=== PATIENT | female | born 1950 | race Caucasian/White ===

== ENCOUNTER 2024-05-16 15:20 | Inpatient (IN) | payer MEDICARE, BC ==
[~2024-05-16] VITALS: Ht 157.5 cm; Wt 82.5 kg
[~2024-05-16 15:20] MED LIST: ALEN35TA18 PO; ASPI81CH59 PO; ATEN-60 PO; ATOR20TA PO; CLOP75TA70 PO; LISI-275 PO; METF-370 PO
--- NOTE | 2024-05-16 16:38 | DVH ---
EXAM: CT HEAD WITHOUT CONTRAST INDICATION: echeverria TECHNIQUE: CT of the head without intravenous contrast. Radiation Dose Information: CT Dose: CTDI volume is 59.63 mGy. Dose-length product is 1175.13 mGy*cm The dose indicators for CT are the volume Computed Tomography (CT) Dose Index (CTDIvol) and the Dose Length Product (DLP), and are measured in units of mGy and mGy-cm, respectively. These indicators are not patient dose, but values generated from the CT scanner acquisition factors. The report includes radiation exposure data for exposures received during this examination. COMPARISON: None FINDINGS: There is no evidence of acute intracranial hemorrhage, extra-axial collection, mass effect, midline s hift, herniation or hydrocephalus. The ventricles, sulci and cisterns are age appropriate. The sorensen-white differentiation is intact. Patchy periventricular and subcortical white matter hypoattenuation is nonspecific but may be related to small vessel ischemic disease. Small right ethmoid air cell opacity. Otherwise the visualized paranasal sinuses and mastoid air [place] are clear. The surrounding soft tissues and osseous structures are unremarkable. IMPRESSION: 1. No CT evidence of acute intracranial abnormality. HS:Y
[2024-05-16] MEDS: ONDANSETRON HCL 4 MG/2 ML VIAL IM ONE (16:43)
[2024-05-16] MEDS: HYDROmorphone HCL 2 MG/ML VL/or syr IM ONE (16:43)
[2024-05-16 17:11] VITALS: PULSE 67; RESP 18; O2SAT 98
[2024-05-16] MEDS: ONDANSETRON HCL 4 MG/2 ML VIAL IV ONE (18:32)
[2024-05-16] MEDS: MORPHINE SULFATE 4 MG/ML SYR/VIAL IV ONE (18:33)
[2024-05-16] MEDS: hydrALAZINE HCL 20 MG/ML VL IV ONE (18:54)
[2024-05-16 19:25] VITALS: PULSE 70; RESP 15; O2SAT 97
--- NOTE | 2024-05-16 20:21 | ED.PDOC ---
History of Present Illness HPI Comments 73-year-old female who comes in with chief complaint of nausea and vomiting with a severe headache. The patient was status post left carotid brain aneurysm repair [facility] on 05/12/2024. The patient now comes in with pain of a 10/10. She states that the pain started at approximat tee 7:00 a.m. this morning and has been worsening. Despite taking her medication of oxycodone, the patient states that it was not helping. Chief Complaint: Headache Time Seen by MD: 15:50 Primary Care Provider: FLY Reviewed Notes: Nurses Notes, Medications, Allergies (No allergies to medications) Allergies: Coded Allergies: NO KNOWN ALLERGIES (Unverified , 05/16/24) Information Source: Patient, Relative Mode of Arrival: Ambulatory Severity: Moderate Timing: Hours Duration: Since onset Prehospital treatment: None Location: Left-sided headache with nausea and vomiting Associated signs and symptoms No other complaints at this time Past Medical History PAST MEDICAL HISTORY: DM (Prediabetes), High Lipids, HTN Surgical History: Cholecystectomy, Tubal Ligation Surgical History (Other): Brain aneurysm surgery, right mastectomy PUBLIC ADDRESS SYSTEM MECHANIC History: No Pertinent PUBLIC ADDRESS SYSTEM MECHANIC History Constitutional: denies: chills, diaphoresis, fatigue, fever, malaise, sweats, weakness, others EENTM: denies: blurred vision, double vision, ear bleeding, ear discharge, ear drainage, ear pain, ear ringing, eye pain, eye redness, hearing loss, mouth pain, mouth swelling, nasal discharge, nose bleeding, nose congestion, nose pain, photophobia, tearing, throat pain, throat swelling, voice changes, others Respiratory: denies: cough, hemoptysis, orthopnea, SOB at rest, shortness of breath, SOB with excertion, stridor, wheezing, others Cardiovascular: denies: chest pain, dizzy spells, diaphoresis, Dyspnea on exertion, edema, irregular heart beat, left arm pain, lightheadedness, palpitations, PND, syncope, others Gastrointestinal: denies: abdomen distended, abdominal pain, blood streaked bowels, constipated, diarrhea, dysphagia, difficulty swallowing, hematemesis, melena, nausea, poor appetite, poor fluid intake, rectal bleeding, rectal pain, vomiting, others Genitourinary: denies: abnormal vagina bleeding, burning, dyspareunia, dysuria, flank pain, frequency, hematuria, incontinence, pain, , vagina discharge, urgency, others Neurological: denies: dizziness, fainting, headache, left sided numbness, left sided weakness, numbness, paresthesia, pre-existing deficit, right sided numbness, right sided weakness, seizure, speech problems, tingling, tremors, weakness, others Musculoskeletal: denies: back pain, gout, joint pain, joint swelling, muscle pain, muscle stiffness, neck pain, others Integumetry: denies: bruises, change in color, change in hair/nails, dryness, laceration, lesions, lumps, rash, wounds, others Allergic/Immunocompromised: denies: Difficulty Healing, Frequent Infections, Hi ves, Itching, others Hematologic/Lymphatic: denies: anemia, blood clots, easy bleeding, easy bruising, swollen glands, others Endocrine: denies: excessive hunger, excessive sweating, excessive thirst, excessive urination, flushing, intolerance to cold, intolerance to heat, unexplained weight gain, unexplained weight loss, others Psychiatric: denies: anxiety, bipolar disorder, depression, hopeless, panic disorder, schizophrenia, sleepless, suicidal, others Physical Exam General Appearance: Moderate Distress HEENT: Normal ENT Inspection, Pharynx Normal, TMs Normal Neck: Full Range of Motion, Non-Tender, Normal, Normal Inspection Respiratory: Chest Non-Tender, Lungs Clear, No Accessory Muscle Use, No Respiratory Distress, Normal Breath Sounds Cardiovascular: No Edema, No JVD, No Murmur, No Gallop, Normal Peripheral Pulses, Regular Rate/Rhythm Breast Exam: Deferred Gastrointestinal: No Organomegaly, Non Tender, No Pulsatile Mass, Normal Bowel Sounds, Soft Genitalia: Deferred Pelvic: Deferred Rectal: Deferred Extremities: No calf tenderness, Normal capillary refill, No pedal edema Musculoskeletal : Apperance: Normal Neurologic: Alert, health information management director II-XII nml as Tested, Motor Weakness, Normal Affect, Normal Mood, No Sensory Deficits Cerebellar Function: Normal Reflexes: Normal Skin: Dry, Normal Color, Warm Lymphatic: No Adenopathy Was a procedure done? Was a procedure done?: No Differential Dx Considerations may include: Accelerated hypertension, migraine headache, generalized weakness X-Ray, Labs, Meds, VS Vital Signs Date Time Temp Pulse Resp B/P (MAP) Pulse Ox O2 Delivery O2 Flow Rate FiO2 05/16/24 19:25 97.7 91 12 144/70 (94) 96 97.7 05/16/24 19:25 70 15 97 Room Air* 0 05/16/24 19:00 71 16 135/75 05/16/24 18:54 142/83 05/16/24 18:33 72 18 176/84 05/16/24 18:16 61 17 176/84 05/16/24 17:14 63 16 165/119 (134) 98 05/16/24 17:11 67 18 98 Room Air* 0 05/16/24 16:43 69 16 183/96 05/16/24 15:24 97.3 72 18 177/100 (125) 95 Current Medications Medications (Trade) Dose Ordered Sig/Rose Route Start Time Stop Time Status Last Admin Hydromorphone HCl (Dilaudid Injection) 1 mg ONCE ONCE IM 05/16/24 16:30 05/16/24 16:31 DC 05/16/24 16:43 Ondansetron HCl (Zofran) 4 mg ONCE ONCE IM 05/16/24 16:30 05/16/24 16:31 DC 05/16/24 16:43 Morphine Sulfate 4 mg ONCE ONCE IV 05/16/24 18:15 05/16/24 18:16 DC 05/16/24 18:33 Ondansetron HCl (Zofran) 4 mg ONCE ONCE IV 05/16/24 18:15 05/16/24 18:16 DC 05/16/24 18:32 Hydralazine HCl (Apresoline Injection) 15 mg ONCE ONCE IV 05/16/24 18:45 05/16/24 18:46 DC 05/16/24 18:54 IV Hep-Lock was established The patient was given Dilaudid 1 mg IM The patient was then given Zofran 4 mg IM The patient was having continued headache so was given morphine 4 mg IV push The patient was also given Zofran 4 mg IV push For the elevated blood pressure, the patient was given hydralazine 15 mg IV push The patient's blood pressure is now 144/70 The patient was being admitted to the hospitalist CT scan of the head shows no sign of any abnormalities Images Reviewed?: Images reviewed and evaluated by me Time of 1ST Reevaluation: 21:40 Reevaluation 1ST: Unchanged Patient Education/Counseling: Diagnosis, Treatment, Prognosis Family Education/Counseling: Diagnosis, Treatment, Prognosis Departure 1 Departure Time of Disposition: 21:40 Impression: Primary Impression: Accelerated hypertension Additional Impression: Tension headache Disposition: 09 ADMITTED INPATIENT Admit to: Tele Condition: Fair Critical Care Note Critical Care Time?: Yes (35 min-critical care time only) Stability Stability form required: Yes Unstable for transfer: Telemetry monitoring (Telemetry monitoring required), ED Physician Assesment (Clinical assesment) Heart Score Heart Score: Heart Score Response (Comments) Value History N/A 0 EKG N/A 0 Age N/A 0 Risk Factors N/A 0 Troponin N/A 0 Total 0 FLORES STARKS MD May 16, 2024 20:20
[2024-05-16] MEDS ORDERED: NITROGLYCERIN 0.4 MG SL TAB SL PRN (21:00)
[2024-05-16] MEDS ORDERED: MORPHINE SULFATE INJ 2 MG/ml SYRG IV PRN (21:00)
[2024-05-16] MEDS: HYDROcodone-ACET 5/325MG TAB PO PRN (21:41)
[2024-05-16] MEDS: ONDANSETRON HCL 4 MG/2 ML VIAL IV PRN (21:41)
[2024-05-16] MEDS: SODIUM CHLOR 0.9% PF (SALINE LOCK) 10ML VIAL/SYR IV SCH (22:03)
[2024-05-16 22:22] LABS: Basophils # (auto) 0 10 ^3/uL (0-0.2); Basophils % (auto) 0.2 % (0.0-2.0); Eosinophils # (auto) 0 10 ^3/uL (0-0.8); Eosinophils % (auto) 0.2 % (0.0-7.0); Hematocrit 39.2 % (36.0-46.0); Hemoglobin 13.3 g/dL (12.2-16.2); Lymphocytes # (auto) 1.3 10 ^3/uL (0.4-5.4); Lymphocytes % (auto) 11.7 % (10.0-50.0); Mean Corpuscular Hemoglobin 30.2 pg (28.0-32.0); Mean Corpuscular Hgb Conc. 33.9 g/dL (32.0-36.0); Mean Corpuscular Volume 89.1 fL (80.0-100.0); Monocytes % (auto) 9.2 % (0.0-12.0); Neutrophils # (auto) 8.6 10 ^3/uL (1.6-8.6); Neutrophils % (auto) 78.7 % (37.0-80.0); Nucleated Red Blood Cells % 0.2 %; Platelet Count (auto) 321 10^3/uL (140-450); Red Cell Distribution Width 14.5 % (11.8-14.3)
[2024-05-16 22:35] LABS: Alanine Aminotransferase 82 U/L (7-40); Albumin 4.2 g/dL (3.2-4.8); Alkaline Phosphatase 68 U/L (46-116); Anion Gap 6 (5-15); Aspartate Aminotransferase 21 U/L (13-40); BUN/Creatinine Ratio 14.1 (10.0-20.0); Blood Urea Nitrogen 10 mg/dL (9-23); Calcium 9.5 mg/dL (8.7-10.4); Carbon Dioxide 29 mmol/L (20-31); Chloride 104 mmol/L (98-107); Glucose 132 mg/dL (74-106); Potassium 3.5 mmol/L (3.5-5.1); Sodium 139 mmol/L (136-145)
[2024-05-16 22:36] LABS: Bilirubin, Total 0.5 mg/dL (0.2-1.0); Total Protein 6.6 g/dL (5.7-8.2)
--- NOTE | 2024-05-17 00:28 | DVHHPRES ---
History of Present Illness Resident Creating Document: EDWARD ZHENG RESIDENT History of Present Illness This is a 73-year-old female with past medical history of hypertension, hyperlipidemia, prediabetes presented to the ED with chief complaints of nausea , vomiting and severe Lt sided headache since morning prior to this admission. The patient was status post left carotid brain aneurysm repair [facility] on 05/12/2024. According to the patient the headache is throbbing in nature, pulsatile, intermittent with a 10/10 with no aggravating factor and relieved a little bit by IV morphine presented with nausea and vomiting couple of times since morning. The daughter mentioned she contacted with the neurosurgeon in [place] who did the surgery and was advised to take oxycodone for the headache but it was not helping the patient that prompted this visit. The patient denies chest pain, shortness of breath, dizziness, diaphoresis, blurring of vision. abdominal pain or any change in bowel and bladder habit . Past Medical History Hypertension, hyperlipidemia, prediabetes, breast cancer 15 years ago Past Surgical History Cholecystectomy, tubal ligation, left-sided brain aneurysm surgery and right mastectomy Family History: None Smoke: No ALCOHOL: none Drugs: None Lives: with Family Review of Systems Constitutional: No: Fever, Chills, Sweats, Weakness, Malaise, Other Eyes: Pain ENT: No: Ear pain, Ear discharge, Nose pain, Nose discharge, Nose congestion, Mouth pain, Mouth swelling, Throat pain, Throat swelling, Other Respiratory: No: Cough, Dry, Shortness of breath, SOB with excertion, Wheezing, Hemoptysis, Pleuritic Pain, Sputum, Wheezing, Other Cardiovascular: No: Chest Pain, Palpitations, Orthopnea, Paroxysmal Noc. Dyspnea, Edema, Lt Headedness, Other Gastrointestinal: Nausea, Vomiting; No: Abdominal Pain, Diarrhea, Constipation, Melena, Hematochezia, Other Genitourinary: No Dysuria, No Frequency, No Incontinence, No Hematuria, No Retention, No Other Musculoskeletal: No: other, neck pain, shoulder pain, arm pain, back pain, hand pain, leg pain, foot pain Skin: No: Rash, Lesions, Jaundice, Bruising, Other Neurological: No: Weakness, Numbness, Incoordination, Change in speech, Confusi on, Seizures, Other Allergies: Coded Allergies: NO KNOWN ALLERGIES (Unverified , 05/16/24) Medications Current Medications Medications Dose Ordered Sig/Rose Route Start Time Stop Time Status Last Admin Dose Admin Sodium Chloride 10 ml Q8HR IV 05/16/24 22:00 05/16/24 22:03 10 ML Acetaminophen 325 mg Q4HP PRN PO 05/16/24 21:00 Acetaminophen/ Hydrocodone Bitart 1 tab Q4HP PRN PO 05/16/24 21:00 05/16/24 21:41 1 TAB Ondansetron HCl 4 mg Q4HP PRN IV 05/16/24 21:00 05/16/24 21:41 4 MG Morphine Sulfate 2 mg Q4HPRN PRN IV 05/16/24 21:00 Nitroglycerin 0.4 mg Q5MINP PRN SL 05/16/24 21:00 Morphine Sulfate 2 mg Q30M PRN IV 05/16/24 21:00 Exam Vital Signs Vital Signs Date Time Temp Pulse Resp B/P (MAP) Pulse Ox O2 Delivery O2 Flow Rate FiO2 05/16/24 19:25 97.7 91 12 144/70 (94) 96 97.7 05/16/24 19:25 Room Air* 0 21 Exam Physical examination: General Appearance: Alert, Oriented X3, Cooperative, mild distress due to severe left-sided headache HEENT: Atraumatic, PERRLA, EOMI, Mucous membrane moist/pink Respiratory: Clear to auscultation, Normal air movement Cardiovascular: Regular rate, Normal S1, Normal S2, No murmurs, no chest wall tenderness Abdominal: Normal bowel sounds, Soft, No tenderness, No hepatospenomegaly, No masses Extremities: No clubbing, No cyanosis, No edema, Normal pulses, No tenderness/swelling Skin: No rashes, No breakdown, No significant lesion Neuro: Normal gait, Normal speech, Strength at 5/5 X4 ext, Normal tone, Sensation intact. Psych/Mental Status: Mental status NL, Mood NL Labs/Xrays Labs Test 05/16/24 22:09 Range/Units White Blood Count 11.0 H 4.4-10.8 10^3/uL Red Blood Count 4.40 4.0-5.20 10^6/uL Hemoglobin 13.3 12.2-16.2 g/dL Hematocrit 39.2 36.0-46.0 % Mean Corpuscular Volume 89.1 80.0-100.0 fL Mean Corpuscular Hemoglobin 30.2 28.0-32.0 pg Mean Corpuscular Hemoglobin Concent 33.9 32.0-36.0 g/dL Red Cell Distribution Width 14.5 H 11.8-14.3 % Platelet Count 321 140-450 10^3/uL Mean Platelet Volume 7.0 6.9-10.8 fL Neutrophils (%) (Auto) 78.7 37.0-80.0 % Lymphocytes (%) (Auto) 11.7 10.0-50.0 % Monocytes (%) (Auto) 9.2 0.0-12.0 % Eosinophils (%) (Auto) 0.2 0.0-7.0 % Basophils (%) (Auto) 0.2 0.0-2.0 % Neutrophils # (Auto) 8.6 1.6-8.6 10 ^3/uL Lymphocytes # (Auto) 1.3 0.4-5.4 10 ^3/uL Monocytes # (Auto) 1.0 0-1.3 10 ^3/uL Eosinophils # (Auto) 0 0-0.8 10 ^3/uL Basophils # (Auto) 0 0-0.2 10 ^3/uL Nucleated Red Blood Cells 0.2 % Sodium Level 139 136-145 mmol/L Potassium Level 3.5 3.5-5.1 mmol/L Chloride Level 104 98-107 mmol/L Carbon Dioxide Level 29 20-31 mmol/L Anion Gap 6 5-15 Blood Urea Nitrogen 10 9-23 mg/dL Creatinine 0.71 0.550-1.02 mg/dL Glomerular Filtration Rate Calc 89 >90 mL/min BUN/Creatinine Ratio 14.1 10.0-20.0 Serum Glucose 132 H 74-106 mg/dL Calcium Level 9.5 8.7-10.4 mg/dL Total Bilirubin 0.5 0.2-1.0 mg/dL Aspartate Amino Transferase (AST) 21 13-40 U/L Alanine Aminotransferase (ALT) 82 H 7-40 U/L Alkaline Phosphatase 68 46-116 U/L Total Protein 6.6 5.7-8.2 g/dL Albumin 4.2 3.2-4.8 g/dL Assessment/Plan Assessment/Plan Assessment and plan: # Severe left-sided headache with vomiting, s/p left-sided brain aneurysm repair on 05/12/2024 in [place] - IV normal saline at 75 mL/hour - IV morphine 2 mg q.4 p.r.n. - [place] 5/325 mg q.4 p.r.n. - IV ondansetron 4 mg q.4 p.r.n. - CT head without contrast revealed no acute intracranial abnormality # Hypertensive urgency - On admission blood pressure was 177/100 - IV hydralazine 10 mg q.6 p.r.n. - Lisinopril 5 mg p.o. daily # Hypokalemia - Replenished # Prediabetes - Counseled patient regarding healthy low carb diet, lifestyle modification and physical exercise # DVT prophylaxis - Lovenox 40 mg sc daily Goal of care discussed with the patient for more than 20 minutes full code Plan of treatment discussed with Dr. Tang. Plan discussed with: Patient, Other My Orders Orders - EDWARD ZHENG RESIDENT Procedure Category Date Status Time Admit ADMIT 05/16/24 Transmitted 20:49 Code Status CODE 05/16/24 Transmitted 20:49 Sodium Chloride Lock PHA 05/16/24 In Process (Saline Lock Ns) 22:00 Oxygen Per Hour RT 05/16/24 Transmitted 20:49 Acetaminophen Tablet PHA 05/16/24 In Process (Tylenol Tablet) 21:00 Hydrocodone-Acet PHA 05/16/24 In Process 5/325mg Tab ([place] 21:00 Ondansetron Hcl PHA 05/16/24 In Process (Zofran) 21:00 Fall Risk Precautions SHIRA 05/16/[address] 20:49 Complete Blood Count LAB 05/17/24 Logged 04:00 Comprehensive LAB 05/17/24 Logged Metabolic Panel 04:00 Cardiac DIET 05/17/24 Transmitted Diet-2gna,Lofat,Lochol Breakfast Pt Request For Service PT 05/16/24 Logged 20:49 Morphine Sulfate PHA 05/16/24 In Process Injection 21:00 Nitroglycerin PHA 05/16/24 In Process Sublingual (Ntrostat 21:00 Morphine Sulfate PHA 05/16/24 In Process Injection 21:00 Oxygen By Nasal RT 05/16/24 Transmitted Cannula 20:49 Stat Ekg For Chest SHIRA 05/16/24 In Process Pain 20:49 Notify Md Of Changes SHIRA 05/16/24 In Process From Base 20:49 [employer] Specialist For [facility] 05/16/24 In Process 24 Hours 20:49 Emergency Dysrhythmia [facility] 05/16/24 In Process Protocol 20:49 Rhythm Strips Once [facility] 05/16/24 In Process Every Shift 20:49 Date of Service: May 16, 2024 Billing Provider: DANIELLE TANG MD Common Visit Codes: 60106-ZOKCLGR INP/OBS CARE (HIGH) Secondary Visit Codes: 58009-[id number] CARE PLAN 30 MINUTES EDWARD ZHENG RESIDENT May 17, 2024 00:27 DANIELLE TANG MD May 17, 2024 09:34
[2024-05-17 04:03] LABS: Basophils # (auto) 0 10 ^3/uL (0-0.2); Basophils % (auto) 0.1 % (0.0-2.0); Eosinophils # (auto) 0.1 10 ^3/uL (0-0.8); Eosinophils % (auto) 0.8 % (0.0-7.0); Hematocrit 38.1 % (36.0-46.0); Hemoglobin 12.9 g/dL (12.2-16.2); Lymphocytes # (auto) 1.5 10 ^3/uL (0.4-5.4); Lymphocytes % (auto) 16.4 % (10.0-50.0); Mean Corpuscular Hemoglobin 30.1 pg (28.0-32.0); Mean Corpuscular Hgb Conc. 33.9 g/dL (32.0-36.0); Mean Corpuscular Volume 88.8 fL (80.0-100.0); Monocytes % (auto) 10.3 % (0.0-12.0); Neutrophils # (auto) 6.9 10 ^3/uL (1.6-8.6); Neutrophils % (auto) 72.4 % (37.0-80.0); Nucleated Red Blood Cells % 0.1 %; Platelet Count (auto) 296 10^3/uL (140-450); Red Blood Cells 4.29 10^6/uL (4.0-5.20); Red Cell Distribution Width 14.5 % (11.8-14.3); White Blood Cell 9.5 10^3/uL (4.4-10.8)
[2024-05-17 04:17] LABS: Alanine Aminotransferase 70 U/L (7-40); Albumin 4.1 g/dL (3.2-4.8); Alkaline Phosphatase 67 U/L (46-116); Anion Gap 7 (5-15); Aspartate Aminotransferase 17 U/L (13-40); Blood Urea Nitrogen 12 mg/dL (9-23); Calcium 9.5 mg/dL (8.7-10.4); Carbon Dioxide 31 mmol/L (20-31); Chloride 101 mmol/L (98-107); Glucose 109 mg/dL (74-106); Potassium 3.4 mmol/L (3.5-5.1); Sodium 139 mmol/L (136-145)
[2024-05-17 04:18] LABS: Bilirubin, Total 0.5 mg/dL (0.2-1.0); Total Protein 6.5 g/dL (5.7-8.2)
[2024-05-17] MEDS: POTASSIUM CHL 20 Meq TABLET PO ONE (04:45)
[2024-05-17 04:50] VITALS: BP 156/96; PULSE 77; RESP 18; RESP 19; TEMP 97.8; TEMP 97.9; O2SAT 94; O2SAT 95
[2024-05-17] MEDS: MORPHINE SULFATE INJ 2 MG/ml SYRG IV PRN ×2 (05:17→09:47)
[2024-05-17] MEDS: hydrALAZINE HCL 20 MG/ML VL IV PRN (07:00)
[2024-05-17 08:00] VITALS: PULSE 80; RESP 20; O2SAT 90
[2024-05-17 09:00] VITALS: BP 129/65; PULSE 80; RESP 20; TEMP 98.9; O2SAT 90
[2024-05-17] MEDS: LISINOPRIL 5 MG TAB PO SCH (09:48)
[2024-05-17] MEDS: ENOXAPARIN SOD 40 MG/0.4 ML SYRINGE SC SCH (09:49)
[2024-05-17] MEDS: ASPirin-EC 81 mg tab PO SCH (09:49)
[2024-05-17] MEDS ORDERED: hydrALAZINE HCL 20 MG/ML VL IV PRN (11:15)
[2024-05-17] MEDS: ATENOLOL 25 MG TAB PO ONE (11:15)
--- NOTE | 2024-05-17 12:10 | DVHINCON2 ---
Date of service: May 17, [address] Gong Reason for Consultation Severe headache, status post left carotid aneurysm surgery History of Present Illness Ms. Field is a 73 years old right-handed female with a history of hypertension, dyslipidemia, diabetes, obesity, he has left ICA brain aneurysm/left eyelid ptosis, she received stent on 05/12/2024 in the [facility] with Dr. Raymundo. He came to the [facility] on 05/16/2024 because of intense left headache. At that time, he is alert and oriented x3, but the family relates the patient was is confused sometimes, the history is obtained from her family, the case has been discussed with Dr. Woody's team, Dr. 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 But on 05/16/2024, she developed intense headache, at the beginning was 7n-8/10, and within a few hours, the headache involved into 10/10 and she decided to seek medical attention. Along with a strong headache, the patient denies vision changes, worsening left eyelid ptosis, focal weakness numbness After presenting case to Dr. Raymundo, he recommended dexamethasone 4 mg q.6 hours, status CT brain scan for evidence of hemorrhage CBC, 05/17/2024: Unremarkable CMP, 05/17/2024: Unremarkable CT head, 05/16/2024: No CT evidence of acute intracranial abnormalit Past Medical History Hypertension, dyslipidemia, diabetes, obesity Past Surgical History Cholecystectomy, tubal ligation, print aneurysm stent, right facial skin cancer resection Family History: Patient reports no known family medical history. Family History One sister had brain aneurysm Social History Smoke: No ALCOHOL: none Drugs: None Lives: with Family Allergies: Coded Allergies: NO KNOWN ALLERGIES (Unverified , 05/16/24) Current Medications Current Medications Medications (Trade) Dose Ordered Sig/Rose Route PRN Reason Start Time Stop Time Status Last Admin Sodium Chloride (Saline Lock Ns) 10 ml Q8HR IV 05/16/24 22:00 11/5/24 06:06 Acetaminophen (Tylenol Tablet) 325 mg Q4HP PRN PO MILD PAIN (1-3 PAIN SCALE) 05/16/24 21:00 Acetaminophen/ Hydrocodone Bitart (Como 5/325MG Tab) 1 tab Q4HP PRN PO MODERATE PAIN (4-6 PAIN SCALE) 05/16/24 21:00 05/17/24 10:59 Ondansetron HCl (Zofran) 4 mg Q4HP PRN IV NAUSEA / VOMITING 05/16/24 21:00 05/17/24 10:59 Morphine Sulfate 2 mg Q4HPRN PRN IV SEVERE PAIN (7-10 PAIN SCALE) 05/16/24 21:00 05/17/24 11:29 DC 05/17/24 05:17 Nitroglycerin (Ntrostat Sublingual) 0.4 mg Q5MINP PRN SL FOR CHEST PAIN 05/16/24 21:00 05/17/24 05:04 DC Morphine Sulfate 2 mg Q30M PRN IV FOR CHEST PAIN 05/16/24 21:00 05/17/24 05:05 DC Lisinopril (Zestril Tablet) 5 mg DAILY PO 05/17/24 10:00 05/17/24 09:48 Hydralazine HCl (Apresoline Injection) 10 mg Q6HP PRN IV SBP>150 05/17/24 00:30 05/17/24 11:30 DC 05/17/24 07:00 Aspirin (Ecotrin Enteric Coated Tablet) 81 mg DAILY PO 05/17/24 10:00 05/17/24 09:49 Atorvastatin Calcium (Lipitor) 20 mg HS PO 05/17/24 22:00 Enoxaparin Sodium (Lovenox) 40 mg DAILY SC 05/17/24 10:00 05/17/24 09:49 Morphine Sulfate 2 mg Q6HPRN PRN IV SEVERE PAIN (7-10 PAIN SCALE) 05/17/24 09:30 05/17/24 09:47 Hydralazine HCl (Apresoline Injection) 10 mg Q6HP PRN IV SBP>150 05/17/24 11:15 Review of Systems As above, the other systems are negative Vital Signs Vital Signs Date Time Temp Pulse Resp B/P (MAP) Pulse Ox O2 Delivery O2 Flow Rate FiO2 05/17/24 10:17 74 20 142/64 05/17/24 09:00 98.9 90 98.9 05/17/24 04:50 Room Air* 0 21 Physical Exam GENERAL EXAM: General: the patient is well developed and nourished. No acute distress. HEENT: Status post skin cancer removal in the left cheek, neck is supple, no carotid bruits. No mass. RESPIRATORY: Normal respiratory effort with symmetrical lung expansion. Lungs clear to auscultation. CARDIOVASCULAR: Regular rate and rhythm with no murmurs. S1, S2. ABDOMEN: Soft, nontender, normal bowel sound NEUROLOGICAL: MENTAL STATUS: Awake and alert. Oriented to person, place, time and general circ umstances (see HPI) SPEECH, LANGUAGE, HIGHER CORTICAL FUNCTION: no aphasia or dysathria. CRANIAL NERVES: #2: Intact visual kevin to confrontation. The optic discs were sharp #3,4,6: Pupils are equal, round and reactive. Left eyelid ptosis. EOMs full and conjugate but she has double vision when she looks to the left and the right side. No nystagmus or gaze evoked nystagmus. #5: Facial sensation intact in all three divisions bilaterally. Mandibular strength intact. #7: Facial muscles symmetrical and strength intact. #8: Hearing grossly normal to voice. #9,10: Uvula and soft palate rise in the midline. Swallow and voice are normal. #11: Trapezius and sternomastoid strength intact bilaterally. #12: Tongue midline. No fasciculations or atrophy. SENSATION: Sensation to touch and pinprick is normal. MOTOR: Normal tone in the upper and lower extremity. Normal muscle bulk. No fasciculations. No abnormal movements or posturing. Muscle strength of the major groups in the upper extremities is 5/5. Muscle strength of the major groups in the lower extremities is 5/5. REFLEXES: Deep tendon reflexes normal and symmetrical. No pathological reflexes. CEREBELLAR/COORDINATION: Finger to nose ise normal bilaterally. GAIT/STATION: deferred Labs/Diagnostic Data Labs Test 05/17/24 03:15 Range/Units White Blood Count 9.5 4.4-10.8 10^3/uL Red Blood Count 4.29 4.0-5.20 10^6/uL Hemoglobin 12.9 12.2-16.2 g/dL Hematocrit 38.1 36.0-46.0 % Mean Corpuscular Volume 88.8 80.0-100.0 fL Mean Corpuscular Hemoglobin 30.1 28.0-32.0 pg Mean Corpuscular Hemoglobin Concent 33.9 32.0-36.0 g/dL Red Cell Distribution Width 14.5 H 11.8-14.3 % Platelet Count 296 140-450 10^3/uL Mean Platelet Volume 6.9 6.9-10.8 fL Neutrophils (%) (Auto) 72.4 37.0-80.0 % Lymphocytes (%) (Auto) 16.4 10.0-50.0 % Monocytes (%) (Auto) 10.3 0.0-12.0 % Eosinophils (%) (Auto) 0.8 0.0-7.0 % Basophils (%) (Auto) 0.1 0.0-2.0 % Neutrophils # (Auto) 6.9 1.6-8.6 10 ^3/uL Lymphocytes # (Auto) 1.5 0.4-5.4 10 ^3/uL Monocytes # (Auto) 1.0 0-1.3 10 ^3/uL Eosinophils # (Auto) 0.1 0-0.8 10 ^3/uL Basophils # (Auto) 0 0-0.2 10 ^3/uL Nucleated Red Blood Cells 0.1 % Sodium Level 139 136-145 mmol/L Potassium Level 3.4 L 3.5-5.1 mmol/L Chloride Level 101 98-107 mmol/L Carbon Dioxide Level 31 20-31 mmol/L Anion Gap 7 5-15 Blood Urea Nitrogen 12 9-23 mg/dL Creatinine 0.75 0.550-1.02 mg/dL Glomerular Filtration Rate Calc 83 >90 mL/min BUN/Creatinine Ratio 16.0 10.0-20.0 Serum Glucose 109 H 74-106 mg/dL Calcium Level 9.5 8.7-10.4 mg/dL Total Bilirubin 0.5 0.2-1.0 mg/dL Aspartate Amino Transferase (AST) 17 13-40 U/L Alanine Aminotransferase (ALT) 70 H 7-40 U/L Alkaline Phosphatase 67 46-116 U/L Total Protein 6.5 5.7-8.2 g/dL Albumin 4.1 3.2-4.8 g/dL Assessment Acute intense headache, to rule out intracranial hemorrhage Big left ICA aneurysm status post stent 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 Although this document has been carefully reviewed, there may still be some phonetic and typographical errors. These areas are purely typographical due to imperfections of the software programs, and do not reflect any compromise in the patient's medical care. Plan discussed with: Patient, Daughter, Son, Other DEMARIO GARZA MD May 17, 2024 12:10
[2024-05-17 13:00] VITALS: BP 142/64; PULSE 86; RESP 18; TEMP 98.7; O2SAT 93
--- NOTE | 2024-05-17 13:24 | DVH ---
Procedure: CT HEAD WITHOUT CONTRAST Study Date and Requested Time: 05/17/2024 12:54 PM History: For aneurysm, stent on 05/12/24, to rule out hemorrhage Comparison: CT HEAD WITHOUT CONTRAST on DOS: 05/16/24 Dose: CTDI: 57.18 mGy DLP: 1126.75 mGycm Technique: Multiplanar images obtained through the brain without intravenous contrast. Findings: Mild diffuse brain atrophy. Moderate to severe chronic small vessel ischemic changes. No hemorrhages, masses, mass effect, midline shift, herniation or cytotoxic edema following a large v ascular territory. No intra-axial or extra-axial fluid collections. No evidence of hydrocephalus. The basal cisterns are patent. The pituitary gland, sella and parasellar regions are unremarkable. The cerebellar tonsils are in nor mal position. The cerebellum is unremarkable. The orbits and globes are unremarkable. The paranasal sinuses and mastoids are clear. There are no wo rrisome calvarial lesions. Mild fatty atrophy of the left parotid gland. There is redemonstration of left-sided cavernous and supraclinoid ICA stent. Impression: No evidence of acute intracranial abnormality.
[2024-05-17] MEDS: HYDROmorphone HCL 2 MG/ML VL/or syr IV PRN (13:45)
--- NOTE | 2024-05-17 14:57 | DVHPNRES ---
Progress Note Date Seen: May 17, 2024 Resident Creating Document: NICOLLE CHAIDEZ RESIDENT Medical Necessity Reason Pt with a Central, PICC or Fol: No Subjective Review of Systems Patient is 73 years old female with past medical history of hypertension, hyperlipidemia, prediabetes, obesity came with a complaint of pain behind the left ear started 1 day ago around 7:00 a.m. in the morning. As per patient patient pain was severe in nature, 9-10 out of 10, throbbing like pain, relieved with some pain medication after because of pain med with the hospital. Patient also endorsed some nausea and vomiting mainly watery no blood. Patient reported having coiling of the left internal carotid artery for left internal carotid artery aneurysm-intracranial part 05/12/2024 in [facility] by Dr. Raymundo. Patient denied any fever, change in vision, any dizziness, dysarthria, chest pain, shortness of breath, constipation, diarrhea. CT head was negative for acute intracranial pathology. Patient's lab workup revealed mild leukocytosis WBC 11.0, mild hypokalemia potassium 3.4. MRSA screen negative. PMH-hypertension, hyperlipidemia, prediabetes, obesity PSH-right mastectomy, tubal ligation , putting stent or call in the left internal carotid artery due to aneurysm Allergy- NKDA Personal History/ Social History- lives with daughter, denies smoking/alcoholism/drug abuse Patient was seen today at the bedside. Patient patient is still complaining of pain Cardiovascular- deny acute chest pain or shortness of breath or cough or palpitation Respiratory- denies cough or short of breath or wheezing Gastrointestinal- denies any rectal bleeding, nausea or vomiting Musculoskeletal-denies acute joint swelling or tenderness or redness Neurological- denies acute dysarthria, dysphagia, change in vision Psychiatry- denies depression or SI or HI Skin- denies acute rash or purpura Patient was seen today for clinical evaluation. Labs and chart reviewed. Patient reports ongoing left orbital pain. Denied any dysarthria or slurred speech. Patient was seen by Neurology, recommendation reviewed and appreciated. neurology recommended Telemetry CT head stat, EEG, Hold off Lovenox, Blood pressure control, SCD DVT prophylaxis, Dexamethasone 4 mg q.6 hours. Objective vital signs Vital Sign Date Time Temp Pulse Resp B/P (MAP) Pulse Ox O2 Delivery O2 Flow Rate FiO2 05/17/24 13:45 86 18 142/64 05/17/24 09:00 98.9 90 98.9 05/17/24 04:50 Room Air* 0 21 Total Intake and Output 05/16/24 05/16/24 05/17/24 15:00 23:00 07:00 Intake Total 0 ml Balance 0 ml medications Current Medications Medications Dose Ordered Sig/Rose Route Start Time Stop Time Status Last Admin Dose Admin Sodium Chloride 10 ml Q8HR IV 05/16/24 22:00 05/17/24 06:06 10 ML Acetaminophen 325 mg Q4HP PRN PO 05/16/24 21:00 Ondansetron HCl 4 mg Q4HP PRN IV 05/16/24 21:00 05/17/24 10:59 4 MG Lisinopril 5 mg DAILY PO 05/17/24 10:00 05/17/24 09:48 5 MG Aspirin 81 mg DAILY PO 05/17/24 10:00 05/17/24 09:49 81 MG Atorvastatin Calcium 20 mg HS PO 05/17/24 22:00 Hydralazine HCl 10 mg Q6HP PRN IV 05/17/24 11:15 Hydromorphone HCl 0.5 mg Q4HPRN PRN IV 05/17/24 12:15 05/17/24 13:45 0.5 MG Dexamethasone 4 mg Q6HR PO 05/17/24 18:00 Examination General examination- , alert oriented, conversant HEENT- PEERLA, no acute nasal discharge Cardiovascular- S1-S2 audible, rate and rhythm regular, no murmur Respiratory- CTAB, no wheeze or rhonchi Gastrointestinal-nontender, bowel sound+. Nondistended Musculoskeletal-no acute joint swelling or tenderness or redness# Lower extremity- no leg edema Neurological- left eye ptosis Psychiatry- denies depression or SI or HI Skin- fragile skin laboratory and microbiology Laboratory Tests 05/17/24 03:15 Test 05/17/24 03:15 Range/Units Serum Glucose 109 H 74-106 mg/dL Microbiology Date/Time Source Procedure Growth Status 05/17/24 05:30 Nose MRSA Screen - Final Complete Problem List/Assessment/Plan Problem List/Assessment/Plan # acute left retro-orbital pain likely due to postoperative complication from status post left ICA stent due to left internal carotid artery aneurysm, rule out intracranial hemorrhage -CT scan of the head negative for intracranial hemorrhage or infarction -neurology consultation reviewed and appreciated -Telemetry -EEG -Hold off Lovenox -Dexamethasone 4 mg q.6 hours # hypertension, uncontrolled likely due to acute left retro-orbital pain -continue lisinopril 5 mg p.o. daily -continue atenolol 25 mg p.o. daily -hydralazine IV p.r.n. as recommended # history of left internal carotid artery aneurysm, -status post left ICA stent, --CT scan of the head negative for intracranial hemorrhage or infarction -neurology consultation reviewed and appreciated -Telemetry -EEG order in place -Hold off Lovenox -Dexamethasone 4 mg q.6 hours # prediabetes -monitor blood sugar # hyperlipidemia -continue atorvastatin 20 mg p.o. q.h.s. #Obesity -patient was counseled about the weight reduction, healthy diet, physical activity Goals of care/advance care planning; FULL CODE; discussed with the patient PUD prophylaxis: DVT prophylaxis: Avoid blood thinner as per Neurology recommendation at this moment Plan discussed with Dr. Woody,,, nursing staff, patient Total time spent on patient evaluation, chart review, assessment and plan, discussion discussion >20 minutes Plan discussed with: Patient Plan discussed with: Patient, Daughter (RN), Other My Orders My Orders Orders - NICOLLE CHAIDEZ Procedure Category Date Status Time Hydralazine Injection PHA 05/17/24 In Process (Apresoline Inject 11:15 Atenolol Tablet PHA 05/18/24 In Process (Tenormin Tablet) 10:00 Date of Service: May 17, 2024 Billing Provider: SRINIVAS WOODY MD Common Visit Codes: 25343-[id number] INP/OBS CARE(HIGH) Secondary Visit Codes: [id number] CARE PLAN 30 MINUTES NICOLLE CHAIDEZ May 17, 2024 14:57 SRINIVAS WOODY MD May 17, 2024 19:03
[2024-05-17 17:00] VITALS: BP 144/71; PULSE 104; RESP 18; TEMP 99.2; O2SAT 89
[2024-05-17] MEDS: DexAMETHasone 4 MG TAB PO SCH (18:01)
[2024-05-17 21:00] VITALS: BP 148/68; PULSE 100; RESP 18; TEMP 98.6; O2SAT 92
[2024-05-17] MEDS: ATORVASTATIN 20 MG TAB PO SCH (21:12)
[2024-05-18] VITALS (8 sets, daily range): BP systolic 119–167; BP diastolic 69–86; PULSE 63–87; RESP 16–20; TEMP 97.3–99; O2SAT 90–93
--- NOTE | 2024-05-18 00:11 | DVHEEG2 ---
Neurology EEG Procedural Note Procedural Note EXAM DATE: 05/17/2024 REFERRING DOCTOR: Dr. Garza TECHNIQUE: Eighteen channels of EEG, 2 channels of EOG, and 1 channel of EKG were recorded using the International 10/20 system. CLINICAL DATA: The patient was referred for an EEG evaluation for the evidence of seizure disorder. MEDICATIONS: See the chart BACKGROUND ACTIVITY: The patient was asleep through the recording, the EEG was consistent with stage 1 sleep. ACTIVATION: Hyperventilation: Not done Photic Stimulation: Not done Sleep: Noticed IMPRESSION: This is a normal sleep EEG. No focal, lateralized, or epileptiform features are noted. If clinically indicated to rule out a seizure disorder, recommend repeat EEG with sleep deprivation. The EKG channel showed an irregular heart rate of 84/[place] [address] DEMARIO GARZA MD May 18, 2024 00:10
[2024-05-18] MEDS: ACETAMINOPHEN 325 MG TAB PO PRN (05:32)
--- NOTE | 2024-05-18 08:11 | DVH ---
CLINICAL INFORMATION: 73 years old, Female; R/O INTRACRAINAL HEMORRHAGE. TECHNIQUE: Axial CTA images of the head and neck were obtained after the uneventful administration o f 100 mL Omnipaque 350 IV contrast. Coronal and sagittal reformatted images and MIP images were obtai keysha, reviewed, and stored. Measurements of carotid stenosis are made per NASCET criteria. All CT scan s at this medical facility are performed using dose modulation techniques as appropriate to a perform ed exam including the following: Automated exposure control was utilized; adjustment of the MA and/or KV according to patient size; and use of iterative reconstruction technique. CTDIvol = 0.07, 0.07, 20.7, 22.52 mGy DLP = 802.79 mGy-cm COMPARISON: Noncontrast enhanced CT head dated 05/17/2024. 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 Posterior cerebral arteries, basilar juno ry, and intracranial segments of the distal vertebral arteries are otherwise normal in caliber and co urse with no evidence of aneurysm, large vessel occlusion, significant stenosis, or vascular malforma tion. There is a patent stent extending from the lacerum segment of the left internal carotid artery to the ophthalmic segment. There is adjacent extra-axial mass measuring up to 1.7 cm in greatest dime nsion along the left side of the parasellar region, posterior to the left orbital apex. The anterior and middle cerebral arteries and intracranial segments of the distal internal carotid arteries are o therwise normal in caliber and course with no evidence of aneurysm, large vessel occlusion, significa nt stenosis, or vascular malformation. CTA NECK: Normal configuration of the aortic arch with patent origins of the brachiocephalic artery, left common carotid artery, and left subclavian artery. Subclavian arteries are patent with no signif icant stenosis. The bilateral common carotid, internal carotid, and external carotid arteries are pat ent with no significant stenosis or evidence of dissection. Left vertebral artery origin is from the aortic arch , a normal anatomic variant. Vertebral arteries are otherwise patent with no significant stenosis or evidence of dissection. Small subcentimeter right thyroid nodule, for which no further fo llow-up is needed per ACR white paper on incidentally detected thyroid nodules, due to its size. IMPRESSION: 1. CTA head demonstrates no evidence of large vessel occlusion, aneurysm, or significant stenosis. 2. CTA neck demonstrates no evidence of carotid or vertebral dissection or significant stenosis. 3. Stent in the intracranial segments of the left internal carotid artery as described above. 4. Well-circumscribed extra-axial mass in the left parasellar region , abutting the sphenoid , adjace nt to the posterior aspect of the left orbital apex , likely meningioma. Correlate with clinical find ings. MRI without and with contrast could be obtained to further characterize if clinically indicated . 5. Additional findings as detailed above.
[2024-05-18] MEDS ORDERED: IOHEXOL 350 MG/ML 100ML IJ ONE (08:24)
[2024-05-18 08:48] LABS: Basophils # (auto) 0 10 ^3/uL (0-0.2); Basophils % (auto) 0.2 % (0.0-2.0); Eosinophils # (auto) 0 10 ^3/uL (0-0.8); Eosinophils % (auto) 0.2 % (0.0-7.0); Hematocrit 37.7 % (36.0-46.0); Hemoglobin 12.6 g/dL (12.2-16.2); Lymphocytes # (auto) 0.9 10 ^3/uL (0.4-5.4); Lymphocytes % (auto) 8.5 % (10.0-50.0); Mean Corpuscular Hemoglobin 29.5 pg (28.0-32.0); Mean Corpuscular Hgb Conc. 33.5 g/dL (32.0-36.0); Mean Corpuscular Volume 88.1 fL (80.0-100.0); Monocytes % (auto) 9.7 % (0.0-12.0); Neutrophils # (auto) 8.7 10 ^3/uL (1.6-8.6); Neutrophils % (auto) 81.4 % (37.0-80.0); Platelet Count (auto) 289 10^3/uL (140-450); Red Blood Cells 4.27 10^6/uL (4.0-5.20); Red Cell Distribution Width 14.5 % (11.8-14.3); White Blood Cell 10.7 10^3/uL (4.4-10.8)
[2024-05-18 09:01] LABS: Chloride 95 mmol/L (98-107); Potassium 3.4 mmol/L (3.5-5.1)
[2024-05-18 09:02] LABS: Anion Gap 4 (5-15); Calcium 9.1 mg/dL (8.7-10.4); Carbon Dioxide 33 mmol/L (20-31)
[2024-05-18 09:03] LABS: Sodium 132 mmol/L (136-145)
[2024-05-18 09:07] LABS: BUN/Creatinine Ratio 15.3 (10.0-20.0); Blood Urea Nitrogen 11 mg/dL (9-23); Glucose 110 mg/dL (74-106)
[2024-05-18] MEDS ORDERED: ATENOLOL 25 MG TAB PO ONE (10:00)
[2024-05-18] MEDS: HYDROmorphone HCL 2 MG/ML VL/or syr IV PRN (10:02)
[2024-05-18] MEDS: ATENOLOL 25 MG TAB PO SCH (10:02)
[2024-05-18] MEDS: LISINOPRIL 20 MG TAB PO SCH (10:03)
[2024-05-18] MEDS: POTASSIUM CHL 10 Meq TABLET PO ONE (10:03)
--- NOTE | 2024-05-18 10:48 | DVHPN2 ---
Progress Note - Dictate Date Seen: May 18, 2024 Medical Necessity Reason Pt with a Central, PICC or Fol: No Subjective Ms. Field is a 73 years old right-handed female with a history of hypertension, dyslipidemia, diabetes, obesity, he has left ICA brain aneurysm/left eyelid ptosis, she received stent on 05/12/2024 in the [facility] with Dr. Raymundo. He came to the [facility] on 05/16/2024 because of intense left headache. I have seen and examined the patient, I have talked to her nurse, and Dr. Woody, her son is in the room, I have talked to Dr. Raymundo, her [facility] neurosurgeon She reports inadequate pain control, but otherwise no new complaints She was alert, oriented x3 CBC, 05/17/2024: Unremarkable CMP, 05/17/2024: Unremarkable CT head, 05/16/2024: No CT evidence of acute intracranial abnormalit CT head, 05/17/2024: No CT evidence of acute intracranial abnormalit CTA head, neck, 05/18/2024: 1. CTA head demonstrates no evidence of large vessel occlusion, aneurysm, or significant stenosis. 2. CTA neck demonstrates no evidence of carotid or vertebral dissection or significant stenosis. 3. Stent in the intracranial segments of the left internal carotid artery as described above. 4. Well-circumscribed extra-axial mass in the left parasellar region , abutting the sphenoid , adjacent to the posterior aspect of the left orbital apex , likely meningioma. Correlate with clinical findings. MRI without and with contrast could be obtained to further characterize if clinically indicated . 5. Additional findings as detailed above vital signs Vital Sign Date Time Temp Pulse Resp B/P (MAP) Pulse Ox O2 Delivery O2 Flow Rate FiO2 05/18/24 10:03 167/86 05/18/24 10:02 81 18 05/18/24 09:00 98.2 90 98.2 05/17/24 20:00 Room Air* 0 21 Total Intake and Output 05/17/24 05/17/24 05/18/24 15:00 23:00 07:00 Intake Total 500 ml 300 ml Balance 500 ml 300 ml medications Current Medications Medications Dose Ordered Sig/Rose Route Start Time Stop Time Status Last Admin Dose Admin Sodium Chloride 10 ml Q8HR IV 05/16/24 22:00 05/18/24 06:00 10 ML Acetaminophen 325 mg Q4HP PRN PO 05/16/24 21:00 05/18/24 05:32 325 MG Ondansetron HCl 4 mg Q4HP PRN IV 05/16/24 21:00 05/17/24 18:08 4 MG Aspirin 81 mg DAILY PO 05/17/24 10:00 05/18/24 10:03 81 MG Atorvastatin Calcium 20 mg HS PO 05/17/24 22:00 Dexamethasone 4 mg Q6HR PO 05/17/24 18:00 05/17/24 18:01 4 MG Atenolol 25 mg DAILY PO 05/18/24 10:00 05/18/24 10:02 25 MG Hydralazine HCl 10 mg Q6HP PRN IV 05/18/24 07:15 Lisinopril 20 mg DAILY PO 05/18/24 10:00 05/18/24 10:03 20 MG Hydromorphone HCl 1 mg Q4HPRN PRN IV 05/18/24 09:30 05/18/24 10:02 1 MG objective General: the patient is well developed and nourished. No acute distress. MENTAL STATUS: Awake and alert. Oriented to person, place, time and general circumstances (see HPI) SPEECH, LANGUAGE, HIGHER CORTICAL FUNCTION: no aphasia or dysathria. CRANIAL NERVES: Pupils are equal, round and reactive. Left eyelid ptosis. Slight limitation in the left eye upper gazing She has double vision when she looks to the left and the right side. No nystagmus or gaze evoked nystagmus. Facial sensation intact in all three divisions bilaterally. Mandibular strength intact. SENSATION: Sensation to touch and pinprick is normal. MOTOR: Normal tone in the upper and lower extremity. Normal muscle bulk. No fasciculations. No abnormal movements or posturing. Muscle strength of the major groups in the extremities is 5/5. REFLEXES: Deep tendon reflexes normal and symmetrical. No pathological reflexes. CEREBELLAR/COORDINATION: Finger to nose ise normal bilaterally. 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 Although this document has been carefully reviewed, there may still be some phonetic and typographical errors. These areas are purely typographical due to imperfections of the software programs, and do not reflect any compromise in the patient's medical care. Prognosis poor Plan discussed with: Patient, Son, Other Total Time (mins): 40 DEMARIO GARZA MD May 18, 2024 10:48
--- NOTE | 2024-05-18 15:23 | DVHPNRES ---
Progress Note Date Seen: May 18, 2024 Resident Creating Document: NICOLLE CHAIDEZ RESIDENT Medical Necessity Reason Pt with a Central, PICC or Fol: No Subjective Review of Systems Patient is 73 years old female with past medical history of hypertension, hyperlipidemia, prediabetes, obesity came with a complaint of pain behind the left ear started 1 day ago around 7:00 a.m. in the morning. As per patient patient pain was severe in nature, 9-10 out of 10, throbbing like pain, relieved with some pain medication after because of pain med with the hospital. Patient also endorsed some nausea and vomiting mainly watery no blood. Patient reported having coiling of the left internal carotid artery for left internal carotid artery aneurysm-intracranial part 05/12/2024 in [facility] by Dr. Raymundo. Patient denied any fever, change in vision, any dizziness, dysarthria, chest pain, shortness of breath, constipation, diarrhea. CT head was negative for acute intracranial pathology. Patient's lab workup revealed mild leukocytosis WBC 11.0, mild hypokalemia potassium 3.4. MRSA screen negative. CT angio of the head and neck revealed-CTA head demonstrates no evidence of large vessel occlusion, aneurysm, or significant stenosis, no evidence of carotid or vertebral dissection or significant stenosis. Stent in the intracranial segments of the left internal carotid artery as described above. Well-circumscribed extra-axial mass in the left parasellar region , abutting the sphenoid , adjacent to the posterior aspect of the left orbital apex , likely meningioma. Correlate with clinical findings. PMH-hypertension, hyperlipidemia, prediabetes, obesity PSH-right mastectomy, tubal ligation , putting stent or call in the left internal carotid artery due to aneurysm Allergy- NKDA Personal History/ Social History- lives with daughter, denies smoking/alcoholism/drug abuse Patient was seen today at the bedside. Patient is still complaining of pain Cardiovascular- deny acute chest pain or shortness of breath or cough or palpitation Respiratory- denies cough or short of breath or wheezing Gastrointestinal- denies any rectal bleeding, nausea or vomiting Musculoskeletal-denies acute joint swelling or tenderness or redness Neurological- denies acute dysarthria, dysphagia, change in vision Psychiatry- denies depression or SI or HI Skin- denies acute rash or purpura Patient was seen today for clinical evaluation. Labs and chart reviewed. Patient reports ongoing left retro-orbital pain. Increase the dose of Dilaudid p.r.n.. On 05/18/2024- CT angio of the head and neck revealed-CTA head demonstrates no evidence of large vessel occlusion, aneurysm, or significant stenosis, no evidence of carotid or vertebral dissection or significant stenosis. Stent in the intracranial segments of the left internal carotid artery as described above. Well-circumscribed extra-axial mass in the left parasellar region , abutting the sphenoid , adjacent to the posterior aspect of the left orbital apex , likely meningioma. Correlate with clinical findings. EEG revealed- This is a normal sleep EEG. No focal, lateralized, or epileptiform features are noted. If clinically indicated to rule out a seizure disorder, recommend repeat EEG with sleep deprivation. The EKG channel showed an irregular heart rate of 84/min Patient was restarted on dexamethasone yesterday- Dexamethasone 4 mg q.6 hours. Patient was followed up by neurologist today. Recommendation reviewed and appreciated. Ordered Ambien 5 mg p.o. q.h.s. for insomnia. Objective vital signs Vital Sign Date Time Temp Pulse Resp B/P (MAP) Pulse Ox O2 Delivery O2 Flow Rate FiO2 05/18/24 14:53 75 18 150/79 05/18/24 12:14 97.3 92 97.3 05/18/24 08:00 Room Air* 0 21 Total Intake and Output 05/17/24 05/17/24 05/18/24 15:00 23:00 07:00 Intake Total 500 ml 300 ml Balance 500 ml 300 ml medications Current Medications Medications Dose Ordered Sig/Rose Route Start Time Stop Time Status Last Admin Dose Admin Sodium Chloride 10 ml Q8HR IV 05/16/24 22:00 05/18/24 13:38 10 ML Acetaminophen 325 mg Q4HP PRN PO 05/16/24 21:00 05/18/24 05:32 325 MG Ondansetron HCl 4 mg Q4HP PRN IV 05/16/24 21:00 05/18/24 14:53 4 MG Aspirin 81 mg DAILY PO 05/17/24 10:00 05/18/24 10:03 81 MG Atorvastatin Calcium 20 mg HS PO 05/17/24 22:00 Dexamethasone 4 mg Q6HR PO 05/17/24 18:00 05/18/24 13:36 4 MG Atenolol 25 mg DAILY PO 05/18/24 10:00 05/18/24 10:02 25 MG Hydralazine HCl 10 mg Q6HP PRN IV 05/18/24 07:15 Lisinopril 20 mg DAILY PO 05/18/24 10:00 05/18/24 10:03 20 MG Hydromorphone HCl 1 mg Q4HPRN PRN IV 05/18/24 09:30 05/18/24 14:53 1 MG Examination General examination- , alert oriented, conversant HEENT- PEERLA, no acute nasal discharge Cardiovascular- S1-S2 audible, rate and rhythm regular, no murmur Respiratory- CTAB, no wheeze or rhonchi Gastrointestinal-nontender, bowel sound+. Nondistended Musculoskeletal-no acute joint swelling or tenderness or redness# Lower extremity- no leg edema Neurological- left eye ptosis Psychiatry- denies depression or SI or HI Skin- fragile skin laboratory and microbiology Laboratory Tests 05/18/24 08:35 Test 05/18/24 08:35 Range/Units Serum Glucose 110 H 74-106 mg/dL Microbiology Date/Time Source Procedure Growth Status 05/17/24 05:30 Nose MRSA Screen - Final Complete Problem List/Assessment/Plan Problem List/Assessment/Plan # acute left retro-orbital pain likely due to postoperative complication from status post left ICA stent due to left internal carotid artery aneurysm, rule out intracranial hemorrhage -CT scan of the head negative for intracranial hemorrhage or infarction -CT angio of the head and neck revealed-CTA head demonstrates no evidence of large vessel occlusion, aneurysm, or significant stenosis, no evidence of carotid or vertebral dissection or significant stenosis. Stent in the intracranial segments of the left internal carotid artery as described above. Well-circumscribed extra-axial mass in the left parasellar region , abutting the sphenoid , adjacent to the posterior aspect of the left orbital apex , likely meningioma -neurology recommendation reviewed and appreciated -EEG negative for seizure -Dexamethasone 4 mg q.6 hours # hypertension, uncontrolled likely due to acute left retro-orbital pain -increase lisinopril from 5 mg to 20 mg p.o. daily -continue atenolol 25 mg p.o. daily -hydralazine IV p.r.n. as recommended # history of left internal carotid artery aneurysm, -status post left ICA stent, --CT scan of the head negative for intracranial hemorrhage or infarction -neurology consultation reviewed and appreciated --EEG negative for seizure -Dexamethasone 4 mg q.6 hours # hemangioma- On 05/18/2024- Well-circumscribed extra-axial mass in the left parasellar region , abutting the sphenoid , adjacent to the posterior aspect of the left orbital apex , likely meningioma. -conservative management for now # insomnia -continue Ambien 5 mg p.o. q.h.s. #Prediabetes -monitor blood sugar #Hyperlipidemia -continue atorvastatin 20 mg p.o. q.h.s. #Obesity -patient was counseled about the weight reduction, healthy diet, physical activity Goals of care/advance care planning; FULL CODE; discussed with the patient PUD prophylaxis: DVT prophylaxis: Avoid blood thinner as per Neurology recommendation at this moment Plan discussed with Dr. Woody,,, nursing staff, patient Total time spent on patient evaluation, chart review, assessment and plan, discussion discussion >20 minutes Plan discussed with: Patient Plan discussed with: Patient, Spouse, Other (RN) My Orders My Orders Orders - NICOLLE CHAIDEZ Procedure Category Date Status Time Communication Order ORDERS 05/17/24 Transmitted 16:21 Angio Head/Neck CT 05/18/24 Resulted 06:59 Hydralazine Injection PHA 05/18/24 In Process (Apresoline Inject 07:15 Lisinopril Tablet PHA 05/18/24 In Process (Zestril Tablet) 10:00 Hydromorphone PHA 05/18/24 In Process Injection (Dilaudid 09:30 Zolpidem Tartrate PHA 05/18/24 In Process (Ambien) 19:00 Date of Service: May 18, 2024 Billing Provider: SRINIVAS WOODY MD Common Visit Codes: [id number] INP/OBS CARE(HIGH) NICOLLE CHAIDEZ May 18, 2024 15:23 SRINIVAS WOODY MD May 18, 2024 22:07
[2024-05-18] MEDS: hydrALAZINE HCL 20 MG/ML VL IV PRN (16:04)
[2024-05-18] MEDS: ZOLPIDEM TARTRATE 5 MG TAB PO ONE (22:35)
[2024-05-19 05:00] VITALS: BP 121/71; PULSE 76; RESP 17; TEMP 99.5; O2SAT 92
[2024-05-19 05:06] LABS: Basophils # (auto) 0 10 ^3/uL (0-0.2); Basophils % (auto) 0.1 % (0.0-2.0); Eosinophils # (auto) 0 10 ^3/uL (0-0.8); Hematocrit 37.7 % (36.0-46.0); Lymphocytes # (auto) 0.9 10 ^3/uL (0.4-5.4); Lymphocytes % (auto) 11.3 % (10.0-50.0); Mean Corpuscular Hemoglobin 30.5 pg (28.0-32.0); Mean Corpuscular Hgb Conc. 34.4 g/dL (32.0-36.0); Mean Corpuscular Volume 88.7 fL (80.0-100.0); Monocytes # (auto) 0.7 10 ^3/uL (0-1.3); Neutrophils # (auto) 6.7 10 ^3/uL (1.6-8.6); Neutrophils % (auto) 80.6 % (37.0-80.0); Platelet Count (auto) 298 10^3/uL (140-450); Red Blood Cells 4.25 10^6/uL (4.0-5.20); Red Cell Distribution Width 14.6 % (11.8-14.3); White Blood Cell 8.3 10^3/uL (4.4-10.8)
[2024-05-19 05:14] LABS: Anion Gap 3 (5-15); Carbon Dioxide 32 mmol/L (20-31); Chloride 98 mmol/L (98-107); Potassium 3.5 mmol/L (3.5-5.1); Sodium 133 mmol/L (136-145)
[2024-05-19 05:15] LABS: Calcium 9.1 mg/dL (8.7-10.4)
[2024-05-19 05:20] LABS: BUN/Creatinine Ratio 15.4 (10.0-20.0); Blood Urea Nitrogen 10 mg/dL (9-23); Glucose 104 mg/dL (74-106)
[2024-05-19 08:00] VITALS: PULSE 89; RESP 16
[2024-05-19 08:46] VITALS: BP 132/62; PULSE 89; RESP 16; TEMP 99.1; O2SAT 89
--- NOTE | 2024-05-19 10:20 | DVHDSRES ---
Discharge Summary Date of Admission Resident Creating Document: NICOLLE CHAIDEZ RESIDENT May 16, 2024 at 20:49 Date of Discharge: May 19, 2024 Admitting Diagnosis Left-sided headache Labs/Diagnostic Data: Laboratory Results Test 05/19/24 04:48 05/18/24 08:35 05/17/24 03:15 White Blood Count 8.3 10^3/uL (4.4-10.8) Red Blood Count 4.25 10^6/uL (4.0-5.20) Hemoglobin 13.0 g/dL (12.2-16.2) Hematocrit 37.7 % (36.0-46.0) Mean Corpuscular Volume 88.7 fL (80.0-100.0) Mean Corpuscular Hemoglobin 30.5 pg (28.0-32.0) Mean Corpuscular Hemoglobin Concent 34.4 g/dL (32.0-36.0) Red Cell Distribution Width 14.6 % (11.8-14.3) Platelet Count 298 10^3/uL (140-450) Mean Platelet Volume 6.6 fL (6.9-10.8) Neutrophils (%) (Auto) 80.6 % (37.0-80.0) Lymphocytes (%) (Auto) 11.3 % (10.0-50.0) Monocytes (%) (Auto) 8.0 % (0.0-12.0) Eosinophils (%) (Auto) 0.0 % (0.0-7.0) Basophils (%) (Auto) 0.1 % (0.0-2.0) Neutrophils # (Auto) 6.7 10 ^3/uL (1.6-8.6) Lymphocytes # (Auto) 0.9 10 ^3/uL (0.4-5.4) Monocytes # (Auto) 0.7 10 ^3/uL (0-1.3) Eosinophils # (Auto) 0 10 ^3/uL (0-0.8) Basophils # (Auto) 0 10 ^3/uL (0-0.2) Nucleated Red Blood Cells 0.0 % Sodium Level 133 mmol/L (136-145) Potassium Level 3.5 mmol/L (3.5-5.1) Chloride Level 98 mmol/L (98-107) Carbon Dioxide Level 32 mmol/L (20-31) Anion Gap 3 (5-15) Blood Urea Nitrogen 10 mg/dL (9-23) Creatinine 0.65 mg/dL (0.550-1.02) Glomerular Filtration Rate Calc 92 mL/min (>90) BUN/Creatinine Ratio 15.4 (10.0-20.0) Serum Glucose 104 mg/dL (74-106) Calcium Level 9.1 mg/dL (8.7-10.4) Hemoglobin A1c 6.1 % A1C (<5.7) Total Bilirubin 0.5 mg/dL (0.2-1.0) Aspartate Amino Transferase (AST) 17 U/L (13-40) Alanine Aminotransferase (ALT) 70 U/L (7-40) Alkaline Phosphatase 67 U/L (46-116) Total Protein 6.5 g/dL (5.7-8.2) Albumin 4.1 g/dL (3.2-4.8) Other Laboratory Tests 05/19/24 04:48 Brief Hx & Hospital Course: Patient is 73 years old female with past medical history of hypertension, hyperlipidemia, prediabetes, obesity came with a complaint of pain behind the left ear started 1 day ago around 7:00 a.m. in the morning. As per patient patient pain was severe in nature, 9-10 out of 10, throbbing like pain, relieved with some pain medication after because of pain med with the hospital. Patient also endorsed some nausea and vomiting mainly watery no blood. Patient reported having coiling of the left internal carotid artery for left internal carotid artery aneurysm-intracranial part 05/12/2024 in [facility] by Dr. Raymundo. Patient denied any fever, change in vision, any dizziness, dysarthria, chest pain, shortness of breath, constipation, diarrhea. CT head was negative for acute intracranial pathology. Patient's lab workup revealed mild leukocytosis WBC 11.0, mild hypokalemia potassium 3.4. MRSA screen negative. CT angio of the head and neck revealed-CTA head demonstrates no evidence of large vessel occlusion, aneurysm, or significant stenosis, no evidence of carotid or vertebral dissection or significant stenosis. Stent in the intracranial segments of the left internal carotid artery as described above. Well-circumscribed extra-axial mass in the left parasellar region , abutting the sphenoid , adjacent to the posterior aspect of the left orbital apex , likely meningioma. Correlate with clinical findings. EEG revealed- This is a normal sleep EEG. No focal, lateralized, or epileptiform features are noted. If clinically indicated to rule out a seizure disorder, recommend repeat EEG with sleep deprivation. The EKG channel showed an irregular heart rate of 84/min. Patient was treated conservatively with the Dilaudid and other pain medication, dexamethasone. No acute neurological deficit noted during hospitalization. CT angio of the head and neck revealed extra-axial mass measuring up to 1.7 cm in greatest dimension along the left side of the parasellar region, posterior to the left orbital apex.. CT scan and CT angio of the head and neck was negative for acute intra cranial hemorrhage or infarction. Patient was seen by neurologist. Neurologist interest her dexamethasone from 2 mg to 4 mg q.6h. Patient's pain gradually getting better. EEG negative for epilepsy. Patient is being discharged home in hemodynamically stable condition. Patient's med was sent to the pharmacy electronically. Patient was advised to follow up with the PCP in 1 week and neurosurgeon following discharge in 1-2 weeks. PMH-hypertension, hyperlipidemia, prediabetes, obesity PSH-right mastectomy, tubal ligation , putting stent or call in the left internal carotid artery due to aneurysm Allergy- NKDA Personal History/ Social History- lives with daughter, denies smoking/alcoholism/drug abuse Patient was seen today at the bedside. Patient is still complaining of pain Cardiovascular- deny acute chest pain or shortness of breath or cough or palpitation Respiratory- denies cough or short of breath or wheezing Gastrointestinal- denies any rectal bleeding, nausea or vomiting Musculoskeletal-denies acute joint swelling or tenderness or redness Neurological- denies acute dysarthria, dysphagia, change in vision Psychiatry- denies depression or SI or HI Skin- denies acute rash or purpura General examination- , alert oriented, conversant HEENT- PEERLA, no acute nasal discharge Cardiovascular- S1-S2 audible, rate and rhythm regular, no murmur Respiratory- CTAB, no wheeze or rhonchi Gastrointestinal-nontender, bowel sound+. Nondistended Musculoskeletal-no acute joint swelling or tenderness or redness# Lower extremity- no leg edema Neurological- left eye ptosis Psychiatry- denies depression or SI or HI Skin- fragile skin Operations or Procedures Signed PATIENT: ELEN ANTOINE ACCT: [id number] UNIT: [id number] : 1950 LOC: ER ROOM / BED: / AGE / SEX: 73 / F ADM STATUS: REG ER SERVICE 1549 ORDERING PHYSICIAN: FLORES STARKS MD PROCEDURE(s): HWOCT - HEAD WITHOUT CONTRAST REASON: echeverria ORDER NUMBER(s): [id number], ACCESSION NUMBER(s): [id number] EXAM: CT HEAD WITHOUT CONTRAST INDICATION: echeverria TECHNIQUE: CT of the head without intravenous contrast. Radiation Dose Information: CT Dose: CTDI volume is 59.63 mGy. Dose-length product is 1175.13 mGy*cm The dose indicators for CT are the volume Computed Tomography (CT) Dose Index (CTDIvol) and the Dose Length Product (DLP), and are measured in units of mGy and mGy-cm, respectively. These indicators are not patient dose, but values generated from the CT scanner acquisition factors. The report includes radiation exposure data for exposures received during this examination. COMPARISON: None FINDINGS: There is no evidence of acute intracranial hemorrhage, extra-axial collection, mass effect, midline shift, herniation or hydrocephalus. The ventricles, sulci and cisterns are age appropriate. The sorensen-white differentiation is intact. Patchy periventricular and subcortical white matter hypoattenuation is nonspecific but may be related to small vessel ischemic disease. Small right ethmoid air cell opacity. Otherwise the visualized paranasal sinuses and mastoid air cells are clear. The surrounding soft tissues and osseous structures are unremarkable. IMPRESSION: 1. No CT evidence of acute intracranial abnormality. HS:Y ATED BY: JONES SOLOMON DO DICTATED DATE/TIME: 05/16/24 163 SIGNED BY: JONES SOLOMON DO SIGNED DATE/TIME: 05/16/24 1635 CC: PATIENT: ELEN ANTOINE ACCT: [id number] UNIT: [id number] : 1950 LOC: EAST ROOM / BED: 0240 / B AGE / SEX: 73 / F ADM STATUS: ADM IN SERVICE 0659 ORDERING PHYSICIAN: NICOLLE CHAIDEZ PROCEDURE(s): [place] - ANGIO HEAD/Neck REASON: R/O INTRACRAINAL HEMORRHAGE ORDER NUMBER(s): [id number], ACCESSION NUMBER(s): [id number] CLINICAL INFORMATION: 73 years old, Female; R/O INTRACRAINAL HEMORRHAGE. TECHNIQUE: Axial CTA images of the head and neck were obtained after the uneventful administration of 100 mL Omnipaque 350 IV contrast. Coronal and sagittal reformatted images and MIP images were obtained, reviewed, and stored. Measurements of carotid stenosis are made per NASCET criteria. All CT scans at this medical facility are performed using dose modulation techniques as appropriate to a performed exam including the following: Automated exposure control was utilized; adjustment of the MA and/or KV according to patient size; and use of iterative reconstruction technique. CTDIvol = 0.07, 0.07, 20.7, 22.52 mGy DLP = 802.79 mGy-cm COMPARISON: Noncontrast enhanced CT head dated 05/17/2024. FINDINGS: CTA HEAD: origin of the right CHILDCARE AIDE incidentally noted. Posterior cerebral arteries, basilar artery, and intracranial segments of the distal vertebral arteries are otherwise normal in caliber and course with no evidence of aneurysm, large vessel occlusion, significant stenosis, or vascular malformation. There is a patent stent extending from the lacerum segment of the left internal carotid artery to the ophthalmic segment. There is adjacent extra- axial mass measuring up to 1.7 cm in greatest dimension along the left side of the parasellar region, posterior to the left orbital apex. The anterior and middle cerebral arteries and intracranial segments of the distal internal carotid arteries are otherwise normal in caliber and course with no evidence of aneurysm, large vessel occlusion, significant stenosis, or vascular malformation. CTA NECK: Normal configuration of the aortic arch with patent origins of the brachiocephalic artery, left common carotid artery, and left subclavian artery. Subclavian arteries are patent with no significant stenosis. The bilateral common carotid, internal carotid, and external carotid arteries are patent with no significant stenosis or evidence of dissection. Left vertebral artery origin is from the aortic arch , a normal anatomic variant. Vertebral arteries are otherwise patent with no significant stenosis or evidence of dissection. Small subcentimeter right thyroid nodule, for which no further follow-up is needed per ACR white paper on incidentally detected thyroid nodules, due to its size. IMPRESSION: 1. CTA head demonstrates no evidence of large vessel occlusion, aneurysm, or significant stenosis. 2. CTA neck demonstrates no evidence of carotid or vertebral dissection or significant stenosis. 3. Stent in the intracranial segments of the left internal carotid artery as described above. 4. Well-circumscribed extra-axial mass in the left parasellar region , abutting the sphenoid , adjacent to the posterior aspect of the left orbital apex , likely meningioma. Correlate with clinical findings. MRI without and with contrast could be obtained to further characterize if clinically indicated . 5. Additional findings as detailed above. ATED BY: DELMER CHASE DO DICTATED DATE/TIME: 05/18/24807 SIGNED BY: DELMER CHASE DO SIGNED DATE/TIME: 05/18/24807 CC: Patient: ELEN ANTOINE Acct: [id number] : 1950 Loc: [facility] Age/Sex: 73/F Unit: [id number] Service Date:05/16/24 Neurology EEG Procedural Note Procedural Note EXAM DATE: 05/17/2024 REFERRING DOCTOR: Dr. Ingram TECHNIQUE: Eighteen channels of EEG, 2 channels of EOG, and 1 channel of EKG were recorded using the International 10/20 system. CLINICAL DATA: The patient was referred for an EEG evaluation for the evidence of seizure disorder. MEDICATIONS: See the chart BACKGROUND ACTIVITY: The patient was asleep through the recording, the EEG was consistent with stage 1 sleep. ACTIVATION: Hyperventilation: Not done Photic Stimulation: Not done Sleep: Noticed IMPRESSION: This is a normal sleep EEG. No focal, lateralized, or epileptiform features are noted. If clinically indicated to rule out a seizure disorder, recommend repeat EEG with sleep deprivation. The EKG channel showed an irregular heart rate of 84/[place] [address] DEMARIO INGRAM MD May 18, 2024 00:10 TRANSCRIBED BY:DEMARIO INGRAM MD TRANSCRIBED DATE/TIME:05/18/249 ELECTRONICALLY SIGNED BY:DEMARIO INGRAM MD 05/18/2410 Condition at Discharge: Stable Final Diagnosis/Problems List acute left retro-orbital pain likely due to postoperative complication from status post left ICA stent due to left internal carotid artery aneurysm, rule out intracranial hemorrhage hypertension, uncontrolled likely due to acute left retro-orbital pain history of left internal carotid artery aneurysm, Hemangioma Insomnia Prediabetes Hyperlipidemia Obesity Discharge Statement: "Patient was advised to return to the ER or call 911 if any headaches, dizziness, shortness of breath, chest pain, abdominal pain, bleeding, fevers, or worsening of medical condition. Patient was counseled about treatment plan, medications, possible side effects, patientverbalized understanding. All questions were answered to the best of my ability. This discharge took greater then 30 minutes in planning, reviewing documentation, counseling the patient, and discussing with other team members." ASSESSMENT ASSESSMENT Assessment NICOLLE CHAIDEZ RESIDENT May 19, 2024 10:20
--- NOTE | 2024-05-19 10:43 | DVHPN2 ---
Progress Note - Dictate Date Seen: May 19, 2024 Medical Necessity Reason Pt with a Central, PICC or Fol: No Subjective Ms. Field is a 73 years old right-handed female with a history of hypertension, dyslipidemia, diabetes, obesity, he has left ICA brain aneurysm/left eyelid ptosis, she received stent on 05/12/2024 in the [facility] with Dr. Raymundo. He came to the [facility] on 05/16/2024 because of intense left headache. I have seen and examined the patient, I have talked to her nurse, her son in the room. She still have lot of pain in the headache, in the pain medication work for 3 hours Her son is in room with her She was alert, oriented x3 CBC, 05/17/2024: Unremarkable CMP, 05/17/2024: Unremarkable CT head, 05/16/2024: No CT evidence of acute intracranial abnormalit CT head, 05/17/2024: No CT evidence of acute intracranial abnormalit CTA head, neck, 05/18/2024: 1. CTA head demonstrates no evidence of large vessel occlusion, aneurysm, or significant stenosis. 2. CTA neck demonstrates no evidence of carotid or vertebral dissection or significant stenosis. 3. Stent in the intracranial segments of the left internal carotid artery as described above. 4. Well-circumscribed extra-axial mass in the left parasellar region , abutting the sphenoid , adjacent to the posterior aspect of the left orbital apex , likely meningioma. Correlate with clinical findings. MRI without and with contrast could be obtained to further characterize if clinically indicated . 5. Additional findings as detailed above vital signs Vital Sign Date Time Temp Pulse Resp B/P (MAP) Pulse Ox O2 Delivery O2 Flow Rate FiO2 05/19/24 09:21 89 16 132/62 05/19/24 08:46 99.1 89 99.1 05/19/24 08:00 Room Air* 0 21 Total Intake and Output 05/18/24 05/18/24 05/19/24 14:59 22:59 06:59 Intake Total 480 ml 1760 ml 250 ml Output Total 300 ml Balance 480 ml 1760 ml -50 ml medications Current Medications Medications Dose Ordered Sig/Rose Route Start Time Stop Time Status Last Admin Dose Admin Sodium Chloride 10 ml Q8HR IV 05/16/24 22:00 05/19/24 05:40 10 ML Acetaminophen 325 mg Q4HP PRN PO 05/16/24 21:00 05/18/24 05:32 325 MG Ondansetron HCl 4 mg Q4HP PRN IV 05/16/24 21:00 05/18/24 14:53 4 MG Aspirin 81 mg DAILY PO 05/17/24 10:00 05/19/24 09:15 81 MG Atorvastatin Calcium 20 mg HS PO 05/17/24 22:00 05/18/24 21:18 20 MG Dexamethasone 4 mg Q6HR PO 05/17/24 18:00 05/19/24 05:38 4 MG Atenolol 25 mg DAILY PO 05/18/24 10:00 05/19/24 09:16 25 MG Hydralazine HCl 10 mg Q6HP PRN IV 05/18/24 07:15 05/18/24 16:04 10 MG Lisinopril 20 mg DAILY PO 05/18/24 10:00 05/19/24 09:17 20 MG Hydromorphone HCl 1 mg Q4HPRN PRN IV 05/18/24 09:30 05/19/24 09:21 1 MG objective General: the patient is well developed and nourished. No acute distress. MENTAL STATUS: Awake and alert. Oriented to person, place, time and general circumstances (see HPI) SPEECH, LANGUAGE, HIGHER CORTICAL FUNCTION: no aphasia or dysathria. CRANIAL NERVES: Pupils are equal, round and reactive. Left eyelid ptosis. Mild limitation in the left eye upper gazing. She has double vision when she looks to up, the left and the right side. No nystagmus or gaze evoked nystagmus. Facial sensation intact in all three divisions bilaterally. Mandibular strength intact. SENSATION: Sensation to touch and pinprick is normal. MOTOR: Normal tone in the upper and lower extremity. Normal muscle bulk. No fasciculations. No abnormal movements or posturing. Muscle strength of the major groups in the extremities is 5/5. REFLEXES: Deep tendon reflexes normal and symmetrical. No pathological reflexes. CEREBELLAR/COORDINATION: Finger to nose is normal bilaterally. 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 Although this document has been carefully reviewed, there may still be some phonetic and typographical errors. These areas are purely typographical due to imperfections of the software programs, and do not reflect any compromise in the patient's medical care. Prognosis poor Plan discussed with: Patient, Son, Other DEMARIO GARZA MD May 19, 2024 10:43
[2024-05-19 13:00] VITALS: BP 111/52; PULSE 64; RESP 14; TEMP 98.3; O2SAT 96
[2024-05-19 17:00] VITALS: BP 116/64; PULSE 64; RESP 16; TEMP 97.5; O2SAT 95
--- NOTE | 2024-05-19 18:29 | DVHPNRES ---
Progress Note Date Seen: May 19, 2024 Resident Creating Document: NICOLLE CHAIDEZ RESIDENT Medical Necessity Reason Pt with a Central, PICC or Fol: No Subjective Review of Systems Patient is 73 years old female with past medical history of hypertension, hyperlipidemia, prediabetes, obesity came with a complaint of pain behind the left ear started 1 day ago around 7:00 a.m. in the morning. As per patient patient pain was severe in nature, 9-10 out of 10, throbbing like pain, relieved with some pain medication after because of pain med with the hospital. Patient also endorsed some nausea and vomiting mainly watery no blood. Patient reported having coiling of the left internal carotid artery for left internal carotid artery aneurysm-intracranial part 05/12/2024 in [facility] by Dr. Raymundo. Patient denied any fever, change in vision, any dizziness, dysarthria, chest pain, shortness of breath, constipation, diarrhea. CT head was negative for acute intracranial pathology. Patient's lab workup revealed mild leukocytosis WBC 11.0, mild hypokalemia potassium 3.4. MRSA screen negative. CT angio of the head and neck revealed-CTA head demonstrates no evidence of large vessel occlusion, aneurysm, or significant stenosis, no evidence of carotid or vertebral dissection or significant stenosis. Stent in the intracranial segments of the left internal carotid artery as described above. Well-circumscribed extra-axial mass in the left parasellar region , abutting the sphenoid , adjacent to the posterior aspect of the left orbital apex , likely meningioma. Correlate with clinical findings. PMH-hypertension, hyperlipidemia, prediabetes, obesity PSH-right mastectomy, tubal ligation , putting stent or call in the left internal carotid artery due to aneurysm Allergy- NKDA Personal History/ Social History- lives with daughter, denies smoking/alcoholism/drug abuse Patient was seen today at the bedside. Patient is still complaining of pain Cardiovascular- deny acute chest pain or shortness of breath or cough or palpitation Respiratory- denies cough or short of breath or wheezing Gastrointestinal- denies any rectal bleeding, nausea or vomiting Musculoskeletal-denies acute joint swelling or tenderness or redness Neurological- denies acute dysarthria, dysphagia, change in vision Psychiatry- denies depression or SI or HI Skin- denies acute rash or purpura Patient was seen today for clinical evaluation. Labs and chart reviewed. Patient reports pain is better today. Reduce the dose of Dilaudid to half. Patient was seen by neurologist. Reviewed and appreciated. Patient's blood pressure was better controlled today. Objective vital signs Vital Sign Date Time Temp Pulse Resp B/P (MAP) Pulse Ox O2 Delivery O2 Flow Rate FiO2 05/19/24 17:00 97.5 64 16 116/64 (81) 95 97.5 05/19/24 08:00 Room Air* 0 21 Total Intake and Output 05/18/24 05/18/24 05/19/24 15:00 23:00 07:00 Intake Total 480 ml 1760 ml 250 ml Output Total 300 ml Balance 480 ml 1760 ml -50 ml medications Current Medications Medications Dose Ordered Sig/Rose Route Start Time Stop Time Status Last Admin Dose Admin Sodium Chloride 10 ml Q8HR IV 05/16/24 22:00 05/19/24 14:00 10 ML Ondansetron HCl 4 mg Q4HP PRN IV 05/16/24 21:00 05/18/24 14:53 4 MG Aspirin 81 mg DAILY PO 05/17/24 10:00 05/19/24 09:15 81 MG Atorvastatin Calcium 20 mg HS PO 05/17/24 22:00 05/18/24 21:18 20 MG Dexamethasone 4 mg Q6HR PO 05/17/24 18:00 05/19/24 18:00 4 MG Atenolol 25 mg DAILY PO 05/18/24 10:00 05/19/24 09:16 25 MG Hydralazine HCl 10 mg Q6HP PRN IV 05/18/24 07:15 05/18/24 16:04 10 MG Lisinopril 20 mg DAILY PO 05/18/24 10:00 05/19/24 09:17 20 MG Hydromorphone HCl 1 mg Q4HPRN PRN IV 05/18/24 09:30 05/19/24 09:21 1 MG Acetaminophen/ Hydrocodone Bitart 1 tab Q4HP PRN PO 05/19/24 10:45 Zolpidem Tartrate 5 mg HSPRN PRN PO 05/19/24 18:00 Examination General examination- , alert oriented, conversant HEENT- PEERLA, no acute nasal discharge Cardiovascular- S1-S2 audible, rate and rhythm regular, no murmur Respiratory- CTAB, no wheeze or rhonchi Gastrointestinal-nontender, bowel sound+. Nondistended Musculoskeletal-no acute joint swelling or tenderness or redness# Lower extremity- no leg edema Neurological- left eye ptosis Psychiatry- denies depression or SI or HI Skin- fragile skin laboratory and microbiology Laboratory Tests 05/19/24 04:48 Test 05/19/24 04:48 Range/Units Serum Glucose 104 74-106 mg/dL Microbiology Date/Time Source Procedure Growth Status 05/17/24 05:30 Nose MRSA Screen - Final Complete Problem List/Assessment/Plan Problem List/Assessment/Plan # acute left retro-orbital pain likely due to postoperative complication from status post left ICA stent due to left internal carotid artery aneurysm, rule out intracranial hemorrhage -CT scan of the head negative for intracranial hemorrhage or infarction -CT angio of the head and neck revealed-CTA head demonstrates no evidence of large vessel occlusion, aneurysm, or significant stenosis, no evidence of carotid or vertebral dissection or significant stenosis. Stent in the intracranial segments of the left internal carotid artery as described above. Well-circumscribed extra-axial mass in the left parasellar region , abutting the sphenoid , adjacent to the posterior aspect of the left orbital apex , likely meningioma -neurology recommendation reviewed and appreciated -EEG negative for seizure -Dexamethasone 4 mg q.6 hours # hypertension, uncontrolled likely due to acute left retro-orbital pain -continue lisinopril 20 mg p.o. daily -continue atenolol 25 mg p.o. daily -hydralazine IV p.r.n. as recommended # history of left internal carotid artery aneurysm, -status post left ICA stent, --CT scan of the head negative for intracranial hemorrhage or infarction -neurology consultation reviewed and appreciated --EEG negative for seizure -Dexamethasone 4 mg q.6 hours # hemangioma- On 05/18/2024- Well-circumscribed extra-axial mass in the left parasellar region , abutting the sphenoid , adjacent to the posterior aspect of the left orbital apex , likely meningioma. -conservative management for now # insomnia -continue Ambien 5 mg p.o. q.h.s. # mild hyponatremia -no acute symptom #Prediabetes -monitor blood sugar #Hyperlipidemia, sodium 132> 133 -continue atorvastatin 20 mg p.o. q.h.s. #Obesity -patient was counseled about the weight reduction, healthy diet, physical activity Goals of care/advance care planning; FULL CODE; discussed with the patient PUD prophylaxis: DVT prophylaxis: Avoid blood thinner as per Neurology recommendation at this moment Plan discussed with Dr. Woody,,, nursing staff, patient Total time spent on patient evaluation, chart review, assessment and plan, discussion discussion >20 minutes Plan discussed with: Patient Plan discussed with: Patient, Other (RN) My Orders My Orders Orders - NICOLLE CHAIDEZ Procedure Category Date Status Time Zolpidem Tartrate PHA 05/19/24 In Process (Ambien) 18:00 Date of Service: May 19, 2024 Billing Provider: SRINIVAS WOODY MD Common Visit Codes: [id number] INP/OBS CARE(HIGH) NICOLLE CHAIDEZ May 19, 2024 18:29 SRINIVAS WOODY MD May 19, 2024 21:32
[2024-05-19] MEDS ORDERED: HYDROmorphone HCL 2 MG/ML VL/or syr IV PRN (18:30)
[2024-05-19 20:00] VITALS: BP 114/55; PULSE 76; RESP 18; TEMP 97.9; O2SAT 91
[2024-05-19] MEDS: ZOLPIDEM TARTRATE 5 MG TAB PO PRN (21:03)
[2024-05-20] MEDS: HYDROcodone-ACET 7.5/325MG TAB PO PRN (00:58)
[2024-05-20 01:00] VITALS: BP 124/52; PULSE 65; RESP 17; TEMP 97.7; O2SAT 91
[2024-05-20 05:00] VITALS: BP 122/71; PULSE 62; RESP 18; TEMP 97.2; O2SAT 92
[2024-05-20 06:17] LABS: Anion Gap 6 (5-15); Carbon Dioxide 32 mmol/L (20-31); Chloride 100 mmol/L (98-107); Potassium 3.7 mmol/L (3.5-5.1); Sodium 138 mmol/L (136-145)
[2024-05-20 06:18] LABS: Calcium 9.4 mg/dL (8.7-10.4)
[2024-05-20 06:19] LABS: Basophils # (auto) 0 10 ^3/uL (0-0.2); Eosinophils # (auto) 0 10 ^3/uL (0-0.8); Hematocrit 39.6 % (36.0-46.0); Hemoglobin 13.3 g/dL (12.2-16.2); Lymphocytes % (auto) 12.8 % (10.0-50.0); Mean Corpuscular Hemoglobin 29.7 pg (28.0-32.0); Mean Corpuscular Hgb Conc. 33.6 g/dL (32.0-36.0); Mean Corpuscular Volume 88.3 fL (80.0-100.0); Monocytes # (auto) 0.5 10 ^3/uL (0-1.3); Monocytes % (auto) 7.2 % (0.0-12.0); Neutrophils # (auto) 6.1 10 ^3/uL (1.6-8.6); Nucleated Red Blood Cells % 0.2 %; Platelet Count (auto) 311 10^3/uL (140-450); Red Blood Cells 4.49 10^6/uL (4.0-5.20); Red Cell Distribution Width 14.6 % (11.8-14.3); White Blood Cell 7.6 10^3/uL (4.4-10.8)
[2024-05-20 06:23] LABS: BUN/Creatinine Ratio 18.7 (10.0-20.0); Blood Urea Nitrogen 14 mg/dL (9-23); Glucose 116 mg/dL (74-106)
[2024-05-20 09:00] VITALS: BP 126/66; PULSE 54; RESP 20; RESP 60; TEMP 98.6; O2SAT 94
[2024-05-20] MEDS ORDERED: HYDR-4798 PO (11:29)
[2024-05-20] MEDS ORDERED: DEXA4TAB PO (11:32)
--- NOTE | 2024-05-20 12:37 | DVHDSRES ---
Discharge Summary Date of Admission Resident Creating Document: NICOLLE CHAIDEZ RESIDENT May 16, 2024 at 20:49 Date of Discharge: May 20, 2024 Admitting Diagnosis Left retro-orbital pain Labs/Diagnostic Data: Laboratory Results Test 05/20/24 05:25 05/18/24 08:35 05/17/24 03:15 White Blood Count 7.6 10^3/uL (4.4-10.8) Red Blood Count 4.49 10^6/uL (4.0-5.20) Hemoglobin 13.3 g/dL (12.2-16.2) Hematocrit 39.6 % (36.0-46.0) Mean Corpuscular Volume 88.3 fL (80.0-100.0) Mean Corpuscular Hemoglobin 29.7 pg (28.0-32.0) Mean Corpuscular Hemoglobin Concent 33.6 g/dL (32.0-36.0) Red Cell Distribution Width 14.6 % (11.8-14.3) Platelet Count 311 10^3/uL (140-450) Mean Platelet Volume 6.9 fL (6.9-10.8) Neutrophils (%) (Auto) 80.0 % (37.0-80.0) Lymphocytes (%) (Auto) 12.8 % (10.0-50.0) Monocytes (%) (Auto) 7.2 % (0.0-12.0) Eosinophils (%) (Auto) 0.0 % (0.0-7.0) Basophils (%) (Auto) 0.0 % (0.0-2.0) Neutrophils # (Auto) 6.1 10 ^3/uL (1.6-8.6) Lymphocytes # (Auto) 1.0 10 ^3/uL (0.4-5.4) Monocytes # (Auto) 0.5 10 ^3/uL (0-1.3) Eosinophils # (Auto) 0 10 ^3/uL (0-0.8) Basophils # (Auto) 0 10 ^3/uL (0-0.2) Nucleated Red Blood Cells 0.2 % Sodium Level 138 mmol/L (136-145) Potassium Level 3.7 mmol/L (3.5-5.1) Chloride Level 100 mmol/L (98-107) Carbon Dioxide Level 32 mmol/L (20-31) Anion Gap 6 (5-15) Blood Urea Nitrogen 14 mg/dL (9-23) Creatinine 0.75 mg/dL (0.550-1.02) Glomerular Filtration Rate Calc 83 mL/min (>90) BUN/Creatinine Ratio 18.7 (10.0-20.0) Serum Glucose 116 mg/dL (74-106) Calcium Level 9.4 mg/dL (8.7-10.4) Hemoglobin A1c 6.1 % A1C (<5.7) Total Bilirubin 0.5 mg/dL (0.2-1.0) Aspartate Amino Transferase (AST) 17 U/L (13-40) Alanine Aminotransferase (ALT) 70 U/L (7-40) Alkaline Phosphatase 67 U/L (46-116) Total Protein 6.5 g/dL (5.7-8.2) Albumin 4.1 g/dL (3.2-4.8) Other Laboratory Tests 05/20/24 05:25 Brief Hx & Hospital Course: Patient is 73 years old female with past medical history of hypertension, hyperlipidemia, prediabetes, obesity came with a complaint of pain behind the left ear started 1 day ago around 7:00 a.m. in the morning. As per patient patient pain was severe in nature, 9-10 out of 10, throbbing like pain, relieved with some pain medication after because of pain med with the hospital. Patient also endorsed some nausea and vomiting mainly watery no blood. Patient reported having coiling of the left internal carotid artery for left internal carotid artery aneurysm-intracranial part 05/12/2024 in [facility] by Dr. Raymundo. Patient denied any fever, change in vision, any dizziness, dysarthria, chest pain, shortness of breath, constipation, diarrhea. CT head was negative for acute intracranial pathology. Patient's lab workup revealed mild leukocytosis WBC 11.0, mild hypokalemia potassium 3.4. MRSA screen negative. CT angio of the head and neck revealed-CTA head demonstrates no evidence of large vessel occlusion, aneurysm, or significant stenosis, no evidence of carotid or vertebral dissection or significant stenosis. Stent in the intracranial segments of the left internal carotid artery as described above. Well-circumscribed extra-axial mass in the left parasellar region , abutting the sphenoid , adjacent to the posterior aspect of the left orbital apex , likely meningioma. Correlate with clinical findings. Patient was treated with a pain medicine and dexamethasone 4mg q.6h. Patient's pain has improved. Patient was seen by neurologist. Neurologist recommended to continue dexamethasone 4 mg q.6h and follow up with the neurosurgeon for further evaluation of the pain and troponin of the dexamethasone. Patient's med were sent to the pharmacy electronically. Patient is being discharged home in hemodynamically stable condition. Patient was advised to follow up with the primary care physician in 1 week and with the neurosurgeon. PMH-hypertension, hyperlipidemia, prediabetes, obesity PSH-right mastectomy, tubal ligation , putting stent or call in the left internal carotid artery due to aneurysm Allergy- NKDA Personal History/ Social History- lives with daughter, denies smoking/alcoholism/drug abuse Patient was seen today at the bedside. Patient is still complaining of pain Cardiovascular- deny acute chest pain or shortness of breath or cough or palpitation Respiratory- denies cough or short of breath or wheezing Gastrointestinal- denies any rectal bleeding, nausea or vomiting Musculoskeletal-denies acute joint swelling or tenderness or redness Neurological- denies acute dysarthria, dysphagia, change in vision Psychiatry- denies depression or SI or HI Skin- denies acute rash or purpura General examination- , alert oriented, conversant HEENT- PEERLA, no acute nasal discharge Cardiovascular- S1-S2 audible, rate and rhythm regular, no murmur Respiratory- CTAB, no wheeze or rhonchi Gastrointestinal-nontender, bowel sound+. Nondistended Musculoskeletal-no acute joint swelling or tenderness or redness# Lower extremity- no leg edema Neurological- left eye ptosis Psychiatry- denies depression or SI or HI Skin- fragile skin Operations or Procedures Signed PATIENT: ELEN ANTOINE ACCT: [id number] UNIT: [id number] : 1950 LOC: ER ROOM / BED: / AGE / SEX: 73 / F ADM STATUS: REG ER SERVICE [id number] ORDERING PHYSICIAN: FLORES STARKS MD PROCEDURE(s): HWOCT - HEAD WITHOUT CONTRAST REASON: echeverria ORDER NUMBER(s): [id number], ACCESSION NUMBER(s): [id number] EXAM: CT HEAD WITHOUT CONTRAST INDICATION: echeverria TECHNIQUE: CT of the head without intravenous contrast. Radiation Dose Information: CT Dose: CTDI volume is 59.63 mGy. Dose-length product is 1175.13 mGy*cm The dose indicators for CT are the volume Computed Tomography (CT) Dose Index (CTDIvol) and the Dose Length Product (DLP), and are measured in units of mGy and mGy-cm, respectively. These indicators are not patient dose, but values generated from the CT scanner acquisition factors. The report includes radiation exposure data for exposures received during this examination. COMPARISON: None FINDINGS: There is no evidence of acute intracranial hemorrhage, extra-axial collection, mass effect, midline shift, herniation or hydrocephalus. The ventricles, sulci and cisterns are age appropriate. The sorensen-white differentiation is intact. Patchy periventricular and subcortical white matter hypoattenuation is nonspecific but may be related to small vessel ischemic disease. Small right ethmoid air cell opacity. Otherwise the visualized paranasal sinuses and mastoid air cells are clear. The surrounding soft tissues and osseous structures are unremarkable. IMPRESSION: 1. No CT evidence of acute intracranial abnormality. HS:Y ATED BY: JONES SOLOMON DO DICTATED DATE/TIME: 05/16/241634 SIGNED BY: JONES SOLOMON DO SIGNED DATE/TIME: 05/16/241634 CC: PATIENT: ELEN ANTOINE ACCT: [id number] UNIT: [id number] : 1950 LOC: [facility] ROOM / BED: [facility] / B AGE / SEX: 73 / F ADM STATUS: ADM IN SERVICE 0659 ORDERING PHYSICIAN: NICOLLE CHAIDEZ RESIDENT PROCEDURE(s): [place] - ANGIO HEAD/Neck REASON: R/O INTRACRAINAL HEMORRHAGE ORDER NUMBER(s): [id number], ACCESSION NUMBER(s): [id number] CLINICAL INFORMATION: 73 years old, Female; R/O INTRACRAINAL HEMORRHAGE. TECHNIQUE: Axial CTA images of the head and neck were obtained after the uneventful administration of 100 mL Omnipaque 350 IV contrast. Coronal and sagittal reformatted images and MIP images were obtained, reviewed, and stored. Measurements of carotid stenosis are made per NASCET criteria. All CT scans at this medical facility are performed using dose modulation techniques as appropriate to a performed exam including the following: Automated exposure control was utilized; adjustment of the MA and/or KV according to patient size; and use of iterative reconstruction technique. CTDIvol = 0.07, 0.07, 20.7, 22.52 mGy DLP = 802.79 mGy-cm COMPARISON: Noncontrast enhanced CT head dated 05/17/2024. FINDINGS: CTA HEAD: origin of the right [employer] incidentally noted. Posterior cerebral arteries, basilar artery, and intracranial segments of the distal vertebral arteries are otherwise normal in caliber and course with no evidence of aneurysm, large vessel occlusion, significant stenosis, or vascular malformation. There is a patent stent extending from the lacerum segment of the left internal carotid artery to the ophthalmic segment. There is adjacent extra- axial mass measuring up to 1.7 cm in greatest dimension along the left side of the parasellar region, posterior to the left orbital apex. The anterior and middle cerebral arteries and intracranial segments of the distal internal carotid arteries are otherwise normal in caliber and course with no evidence of aneurysm, large vessel occlusion, significant stenosis, or vascular malformation. CTA NECK: Normal configuration of the aortic arch with patent origins of the brachiocephalic artery, left common carotid artery, and left subclavian artery. Subclavian arteries are patent with no significant stenosis. The bilateral common carotid, internal carotid, and external carotid arteries are patent with no significant stenosis or evidence of dissection. Left vertebral artery origin is from the aortic arch , a normal anatomic variant. Vertebral arteries are otherwise patent with no significant stenosis or evidence of dissection. Small subcentimeter right thyroid nodule, for which no further follow-up is needed per ACR white paper on incidentally detected thyroid nodules, due to its size. IMPRESSION: 1. CTA head demonstrates no evidence of large vessel occlusion, aneurysm, or significant stenosis. 2. CTA neck demonstrates no evidence of carotid or vertebral dissection or significant stenosis. 3. Stent in the intracranial segments of the left internal carotid artery as described above. 4. Well-circumscribed extra-axial mass in the left parasellar region , abutting the sphenoid , adjacent to the posterior aspect of the left orbital apex , likely meningioma. Correlate with clinical findings. MRI without and with contrast could be obtained to further characterize if clinically indicated . 5. Additional findings as detailed above. ATED BY: DELMER CHASE DO DICTATED DATE/TIME: 05/18/24807 SIGNED BY: DELMER CHASE DO SIGNED DATE/TIME: 05/18/24807 CC: Patient: ELEN ANTOINE Acct: [id number] : 1950 Loc: [facility] Age/Sex: 73/F Unit: [id number] Service Date:05/16/24 Neurology EEG Procedural Note Procedural Note EXAM DATE: 05/17/2024 REFERRING DOCTOR: Dr. Ingram TECHNIQUE: Eighteen channels of EEG, 2 channels of EOG, and 1 channel of EKG were recorded using the International 10/20 system. CLINICAL DATA: The patient was referred for an EEG evaluation for the evidence of seizure disorder. MEDICATIONS: See the chart BACKGROUND ACTIVITY: The patient was asleep through the recording, the EEG was consistent with stage 1 sleep. ACTIVATION: Hyperventilation: Not done Photic Stimulation: Not done Sleep: Noticed IMPRESSION: This is a normal sleep EEG. No focal, lateralized, or epileptiform features are noted. If clinically indicated to rule out a seizure disorder, recommend repeat EEG with sleep deprivation. The EKG channel showed an irregular heart rate of 84/[place] [address] DEMARIO INGRAM MD May 18, 2024 00:10 TRANSCRIBED BY:DEMARIO INGRAM MD TRANSCRIBED DATE/TIME:05/18/249 ELECTRONICALLY SIGNED BY:DEMARIO INGRAM MD 05/18/24 001 Condition at Discharge: Stable Final Diagnosis/Problems List # acute left retro-orbital pain likely due to postoperative complication from status post left ICA stent due to left internal carotid artery aneurysm, rule out intracranial hemorrhage # hypertension, uncontrolled likely due to acute left retro-orbital pain # history of left internal carotid artery aneurysm, #hemangioma # insomnia # prediabetes # hyperlipidemia # obesity Discharge Disposition: Home Discharge Instruct/Medications Diet: Consistent carbohydrate, Cardiac 2g Na,low cholest Activity: Light activity Follow Up/Referral: Please follow up with the primary care physician in 1 week and also with your neurosurgeon in 1-2 weeks Please make sure you follow up with your neurosurgeon for the tapering of the dexamethasone please follow recommendation. Medications: Dexamethasone 4 mg p.o. q.6h Discharge Statement: "Patient was advised to return to the ER or call 911 if any headaches, dizziness, shortness of breath, chest pain, abdominal pain, bleeding, fevers, or worsening of medical condition. Patient was counseled about treatment plan, medications, possible side effects, patientverbalized understanding. All questions were answered to the best of my ability. This discharge took greater then 30 minutes in planning, reviewing documentation, counseling the patient, and discussing with other team members." ASSESSMENT ASSESSMENT Assessment # acute left retro-orbital pain likely due to postoperative complication from status post left ICA stent due to left internal carotid artery aneurysm, rule out intracranial hemorrhage # hypertension, uncontrolled likely due to acute left retro-orbital pain # history of left internal carotid artery aneurysm, hemangioma # insomnia # prediabetes '# hyperlipidemia # obesity Date of Service: May 20, 2024 Billing Provider: VIVIAN SOFIA MD Common Visit Codes: 97171-YTO/OBS DISCH DAY >30min NICOLLE CHAIDEZ RESIDENT May 20, 2024 12:37 VIVIAN SOFIA MD May 24, 2024 18:04
[2024-05-20 13:00] VITALS: BP 138/70; PULSE 77; RESP 20; TEMP 98.1; O2SAT 91
[2024-05-20 13:37] VITALS: BP 138/70; PULSE 77; RESP 20; TEMP 98.1; O2SAT 91
== END 2024-05-20 16:28 | disposition home or self-care (01) | DRG 948 ==
LOC: ER 15:20 → OVERFLOW 20:49 → EAST 20:51
PROVIDERS: ADMIT Internal Medicine; ATTEND Internal Medicine
DX: G89.18 Other acute postprocedural pain (principal); H57.12 Ocular pain, left eye; I16.0 Hypertensive urgency; E87.6 Hypokalemia; E78.5 Hyperlipidemia, unspecified; E11.9 Type 2 diabetes mellitus without complications; G44.209 Tension-type headache, unspecified, not intractable; E66.9 Obesity, unspecified; G47.00 Insomnia, unspecified; D18.09 Hemangioma of other sites; Z90.49 Acquired absence of other specified parts of digestive tract; Z68.33 Body mass index [BMI] 33.0-33.9, adult; Z90.11 Acquired absence of right breast and nipple; Z85.828 Personal history of other malignant neoplasm of skin; Y83.8 Other surgical procedures as the cause of abnormal reaction of the patient, or of later complication, without mention of misadventure at the time of the procedure; Y92.89 Other specified places as the place of occurrence of the external cause
CPT/HCPCS: 36415; 70450; 70496; 80048; 80053; 83036; 85025; 87081; 95819; 97116; 97163; 97530; 99291; G0378; J2405